=== PATIENT | female | born 1960 | race Caucasian/White ===

== ENCOUNTER 2017-05-04 21:07 | Inpatient (IN) | payer MEDICAID, OTHER ==
[~2017-05-04] VITALS: Ht 167.6 cm; Wt 81.6 kg
[~2017-05-04 21:07] MED LIST: AMLO10TA80; ENOX100D4; GABA-529; HYDR-2510; INSU100I19; INSU100I3; LEVE10006; METF500T7; OXYC1TAB; PRAV40TA58; WARF5TAB73
[2017-05-05] MEDS ORDERED: MORPHINE SULFATE 4 MG/ML CPJ (NOT FOR IM USE) IV STA (00:16)
[2017-05-05] MEDS ORDERED: ONDANSETRON HCL 4MG/2ML VIAL IV STA (00:16)
[2017-05-05] MEDS ORDERED: SODIUM CHLORIDE 0.9% 1000ML BAG (SEPSIS BOLUS) IV ONE (00:30)
[2017-05-05] MEDS ORDERED: VANCOMYCIN 1 G PREMIX 200 ML IV ONE (00:30)
[2017-05-05] MEDS ORDERED: PIPERACILLIN/TAZ 3.375G PREMIX 50 ML IV ONE (00:30)
[2017-05-05 01:06] LABS: BASOPHILS % 0.4 % (0.0-2.0); EOSINOPHILS % 0.5 % (0.0-5.0); HEMATOCRIT. 32.2 % (36.0-48.0); HEMOGLOBIN. 10.8 g/dL (12.0-16.0); LYMPHOCYTES % 14.1 % (20.0-50.0); MEAN CORPUSCULAR HEMOGLOBIN 27.1 pg (28.0-32.0); MEAN CORPUSCULAR VOLUME 80.7 fL (81.0-99.0); MEAN PLATELET VOLUME 8.1 fl (7.4-10.4); PLATELET 243 x1000/uL (130-400); RED BLOOD CELL COUNT 3.99 mill/uL (4.2-5.4); RED CELL DISTRIBUTION WIDTH 14.5 % (11.6-14.6)
[2017-05-05 01:08] LABS: CHLORIDE 102 mEq/L (98-107)
[2017-05-05 01:11] LABS: INR 1.1; PROTHROMBIN TIME 11.1 sec
[2017-05-05 01:17] LABS: CARBON DIOXIDE 25 mEq/L (21-32)
[2017-05-05] MEDS ORDERED: LIDOCAINE HCL 1% 20ML VIAL (Pyxis) INJ INFIL NR (03:15)
[2017-05-05] MEDS ORDERED: SULFAMETHOXAZOLE/TRIMETHOPRIM 800/160MG TABLET PO NR (03:15)
[2017-05-05] MEDS ORDERED: CEFTRIAXONE SODIUM 1 G/VIAL IM NR (03:15)
[2017-05-05] MEDS ORDERED: ONDANSETRON 4MG ODT PO PRN (04:30)
[2017-05-05] MEDS ORDERED: HYDROCODONE/ACETAMINOPHEN 10/325MG TABLET PO ONE (04:30)
[2017-05-05] MEDS ORDERED: SKIN ADHESIVE 0.7 GM EA TOP ONE (08:00)
[2017-05-05] MEDS ORDERED: BUPIVACAINE HCL/PF 0.5% (5MG/ML) 10ML ONE (08:01)
[2017-05-05] MEDS ORDERED: BACITRACIN 50,000 UNITS/VIAL ONE (08:17)
[2017-05-05] MEDS ORDERED: NORMAL SALINE 0.9% 10 ML SYR ONE (08:17)
[2017-05-05] MEDS ORDERED: LEVOFLOXACIN 500MG PREMIX 100 ML IV ONE (08:33)
[2017-05-05] MEDS ORDERED: MEPERIDINE HCL/PF 25MG/ML CPJ IV PRN (08:45)
[2017-05-05] MEDS ORDERED: LABETALOL HCL 20MG/4ML CARPUJECT IV PRN (08:45)
[2017-05-05] MEDS ORDERED: ONDANSETRON HCL 4MG/2ML VIAL IV PRN ×2 (08:45→14:30)
[2017-05-05] MEDS: HYDROMORPHONE HCL/PF 2MG/ML CPJ IV PRN ×5 (10:33→12:11)
[2017-05-05 11:15] VITALS: BP 116/86
[2017-05-05 11:22] VITALS: BP 116/86
[2017-05-05] MEDS ORDERED: KEPP500 PO (14:19)
[2017-05-05] MEDS ORDERED: ASCO500C6 PO (14:19)
[2017-05-05] MEDS ORDERED: DEXTROSE 50% WATER 50ML SYRINGE IV PRN (14:30)
[2017-05-05 16:00] VITALS: BP 117/76
[2017-05-05] MEDS ORDERED: CLINDAMYCIN 600 MG in DEXTROSE 5% WATER 50 ML IV SCH (16:00)
[2017-05-05] MEDS: BLOOD SUGAR DIAGNOSTIC STRIP TEST SCH ×2 (17:35→21:08)
[2017-05-05] MEDS: INSULIN LISPRO 100 UNITS/ML SUBCUT SCH ×2 (18:34→21:08)
[2017-05-05] MEDS: LEVETIRACETAM 500MG TABLET PO SCH (18:34)
[2017-05-05 20:00] VITALS: BP 112/71
[2017-05-05] MEDS: MORPHINE SULFATE 4 MG/ML CPJ (NOT FOR IM USE) IV PRN (21:07)
[2017-05-05] MEDS: CLINDAMYCIN 600 MG in DEXTROSE 5% WATER 50 ML IV SCH (23:20)
[2017-05-06] VITALS: BP 131/81
[2017-05-06 04:00] VITALS: BP 141/75
[2017-05-06] MEDS: HYDROCODONE/ACETAMINOPHEN 10/325MG TABLET PO PRN ×3 (04:06→20:06)
[2017-05-06] MEDS: CLINDAMYCIN 600 MG in DEXTROSE 5% WATER 50 ML IV SCH ×2 (05:08→13:07)
[2017-05-06] MEDS: BLOOD SUGAR DIAGNOSTIC STRIP TEST SCH ×4 (07:20→20:58)
[2017-05-06 07:46] LABS: BASOPHILS % 0.1 % (0.0-2.0); EOSINOPHILS % 0.8 % (0.0-5.0); HEMOGLOBIN. 9.6 g/dL (12.0-16.0); MEAN CORPUSCULAR HEMOGLOBIN 26.5 pg (28.0-32.0); MEAN CORPUSCULAR VOLUME 79.8 fL (81.0-99.0); MEAN PLATELET VOLUME 8.4 fl (7.4-10.4); MONOCYTES % 6.9 % (2.0-8.0); NEUTROPHILS % 65.2 % (40.0-76.0); PLATELET 230 x1000/uL (130-400); RED BLOOD CELL COUNT 3.63 mill/uL (4.2-5.4); RED CELL DISTRIBUTION WIDTH 14.4 % (11.6-14.6)
[2017-05-06 08:00] VITALS: BP 144/73
[2017-05-06 08:05] LABS: CARBON DIOXIDE 26 mEq/L (21-32); CHLORIDE 105 mEq/L (98-107)
[2017-05-06] MEDS: INSULIN LISPRO 100 UNITS/ML SUBCUT SCH ×6 (08:35→20:57)
[2017-05-06] MEDS: LEVETIRACETAM 500MG TABLET PO SCH ×2 (08:39→17:44)
[2017-05-06] MEDS: MORPHINE SULFATE 4 MG/ML CPJ (NOT FOR IM USE) IV PRN ×2 (11:51→20:54)
[2017-05-06 12:00] VITALS: BP 129/72
[2017-05-06 16:00] VITALS: BP 111/68
[2017-05-06 20:00] VITALS: BP 119/77
[2017-05-06] MEDS ORDERED: INSULIN DETEMIR UD 100 UNITS/ML SYR SUBCUT SCH (22:00)
[2017-05-07] VITALS: BP 120/64
[2017-05-07 04:00] VITALS: BP 122/58
[2017-05-07] MEDS: BLOOD SUGAR DIAGNOSTIC STRIP TEST SCH (06:26)
[2017-05-07 08:00] VITALS: BP 151/71
[2017-05-07] MEDS: INSULIN LISPRO 100 UNITS/ML SUBCUT SCH ×2 (08:25→08:26)
[2017-05-07] MEDS: LEVETIRACETAM 500MG TABLET PO SCH (08:27)
[2017-05-07 09:50] VITALS: BP 151/71
[2017-05-07] MEDS: HYDROCODONE/ACETAMINOPHEN 10/325MG TABLET PO PRN (09:50)
== END 2017-05-07 10:55 | disposition left against medical advice (07) | DRG 816 ==
LOC: ER 21:07 → ENRESERV 05-05 07:02 → ER 05-05 08:02 → 6EST 05-05 11:15
PROVIDERS: ADMIT Internal Medicine; ATTEND Internal Medicine
PROC: 0X973ZZ Drainage of Left Upper Extremity, Percutaneous Approach (ICD-10-PCS; principal; 2017-05-05 07:50)
DX: T40.1X1A Poisoning by heroin, accidental (unintentional), initial encounter (principal); M72.6 Necrotizing fasciitis; L03.114 Cellulitis of left upper limb; L02.414 Cutaneous abscess of left upper limb; F11.10 Opioid abuse, uncomplicated; G40.909 Epilepsy, unspecified, not intractable, without status epilepticus; F17.210 Nicotine dependence, cigarettes, uncomplicated; Z53.21 Procedure and treatment not carried out due to patient leaving prior to being seen by health care provider; E11.628 Type 2 diabetes mellitus with other skin complications; Z86.718 Personal history of other venous thrombosis and embolism; Z90.49 Acquired absence of other specified parts of digestive tract; Y92.89 Other specified places as the place of occurrence of the external cause
CPT/HCPCS: 36415; 71010; 76881; 80053; 82962; 83605; 85025; 85610; 87040; 87070; 87075; 87205; 93005; 93970; 96365; 96375; 99285; A4216; J0696; J1170; J1815; J1956; J2270; J2405; J2543; J3490; J7030; J7040; J7060; Q0162

== ENCOUNTER 2017-11-28 15:15 | Emergency (ER) | payer MEDICAID ==
[~2017-11-28] VITALS: Ht 167.6 cm; Wt 82.0 kg
[~2017-11-28 15:15] MED LIST changes: -AMLO10TA80; +ASCO500C6 PO; -ENOX100D4; -GABA-529; -HYDR-2510; +KEPP500 PO; -LEVE10006; -OXYC1TAB; -WARF5TAB73
[2017-11-28] MEDS ORDERED: SODIUM CHLORIDE 0.9% 1,000 ML IV ONE (23:11)
[2017-11-28] MEDS ORDERED: ONDANSETRON HCL 4MG/2ML VIAL IV SCH (23:11)
[2017-11-28] MEDS ORDERED: KETOROLAC 30MG/ML VIAL IV SCH (23:11)
[2017-11-28 23:13] LABS: BASOPHILS % 0.5 % (0.0-2.0); EOSINOPHILS % 2.7 % (0.0-5.0); HEMOGLOBIN. 11.7 g/dL (12.0-16.0); LYMPHOCYTES % 34.5 % (20.0-50.0); MEAN CORPUSCULAR HEMOGLOBIN 26.4 pg (28.0-32.0); MEAN CORPUSCULAR VOLUME 80.6 fL (81.0-99.0); MEAN PLATELET VOLUME 7.9 fl (7.4-10.4); MONOCYTES % 7.7 % (2.0-8.0); NEUTROPHILS % 54.6 % (40.0-76.0); PLATELET 219 x1000/uL (130-400); RED BLOOD CELL COUNT 4.46 mill/uL (4.2-5.4)
[2017-11-28] MEDS ORDERED: VANCOMYCIN 1 G PREMIX 200 ML IV SCH (23:15)
[2017-11-28] MEDS ORDERED: PIPERACILLIN/TAZ 3.375G PREMIX 50 ML IV SCH (23:15)
[2017-11-28 23:18] LABS: CHLORIDE 98 mEq/L (98-107)
[2017-11-28 23:24] LABS: CARBON DIOXIDE 29 mEq/L (21-32)
[2017-11-28 23:40] LABS: PROTHROMBIN TIME 10.7 sec (9.4-11.6)
[2017-11-29] MEDS ORDERED: KETOROLAC 30MG/ML VIAL IM SCH (00:15)
[2017-11-29] MEDS ORDERED: ONDANSETRON 4MG ODT PO SCH (00:15)
[2017-11-29 00:22] LABS: CLARITY URINE CLEAR (CLEAR); COLOR URINE YELLOW (YELLOW); KETONES URINE NEGATIVE (NEGATIVE); LEUKOCYTE ESTERASE URINE NEGATIVE (NEGATIVE); NITRITE URINE NEGATIVE (NEGATIVE); OCCULT BLOOD URINE NEGATIVE (NEGATIVE); PROTEIN URINE NEGATIVE (NEGATIVE); SPECIFIC GRAVITY URINE 1.044 (1.005-1.030); UROBILINOGEN URINE 0.2 E.U./dL (0.2-1.0)
[2017-11-29] MEDS ORDERED: ENOXAPARIN 80MG/0.8ML SYR SUBCUT ONE (02:47)
[2017-11-29] MEDS ORDERED: LIDOCAINE HCL 1% 20ML VIAL (Pyxis) INJ MC ONE (02:47)
[2017-11-29] MEDS ORDERED: BACITRACIN ZINC OINT UDPKT TOP ONE (02:47)
[2017-11-29] MEDS ORDERED: TETANUS, DIPHTHERIA, PERTUSSIS VAC/PF 0.5ML (>7YR OLD) IM ONE (02:47)
[2017-11-29] MEDS ORDERED: HYDROCODONE/ACETAMINOPHEN 10/325MG TABLET PO ONE (02:48)
[2017-11-29] MEDS ORDERED: CEPHALEXIN 500MG CAPSULE PO SCH (04:22)
[2017-11-29] MEDS ORDERED: SULFAMETHOXAZOLE/TRIMETHOPRIM 800/160MG TABLET PO SCH (04:22)
[2017-11-29 05:45] VITALS: BP 115/56
[2017-11-29] MEDS ORDERED: LEVETIRACETAM 500MG TABLET PO SCH (09:00)
[2017-11-29] MEDS ORDERED: INSULIN DETEMIR UD 100 UNITS/ML SYR SUBCUT SCH (22:00)
== END 2017-11-29 07:15 | disposition left against medical advice (07) ==
LOC: ER 15:53 → CANBEDREQ 11-29 18:22
DX: E11.65 Type 2 diabetes mellitus with hyperglycemia (principal); E86.0 Dehydration; L02.414 Cutaneous abscess of left upper limb; F11.20 Opioid dependence, uncomplicated; Z79.4 Long term (current) use of insulin
CPT/HCPCS: 10060; 36415; 71045; 76881; 80053; 81001; 82962; 83605; 85025; 85610; 87040; 87077; 87086; 87186; 90471; 90715; 93005; 93971; 96372; 99285; C1893; J1650; J1885; J3490; J7030; Q0162; X7700; Z7610

== ENCOUNTER 2018-01-01 18:42 | Emergency (ER) | payer MEDICAID ==
[~2018-01-01] VITALS: Ht 167.6 cm; Wt 97.4 kg
[2018-01-01] MEDS ORDERED: LIDOCAINE HCL 1% 20ML VIAL (Pyxis) INJ INFIL ONE (22:15)
[2018-01-01] MEDS ORDERED: CEFTRIAXONE SODIUM 1 G/VIAL IM ONE (22:15)
[2018-01-01] MEDS ORDERED: DOXYCYCLINE HYCLATE 100MG CAPSULE PO ONE (22:15)
[2018-01-01] MEDS ORDERED: TRAMADOL 50MG TABLET PO ONE (22:30)
[2018-01-01] MEDS ORDERED: BACITRACIN ZINC OINT UDPKT TOP ONE (22:30)
[2018-01-01] MEDS ORDERED: LIDOCAINE HCL 1% 20ML VIAL (Pyxis) INJ MC ONE (22:30)
[2018-01-01] MEDS ORDERED: ONDANSETRON 4MG ODT PO ONE (22:30)
[2018-01-01] MEDS ORDERED: KETOROLAC 30MG/ML VIAL IM ONE (22:30)
[2018-01-01 23:12] LABS: CLARITY URINE CLEAR (CLEAR); COLOR URINE YELLOW (YELLOW); KETONES URINE NEGATIVE (NEGATIVE); LEUKOCYTE ESTERASE URINE NEGATIVE (NEGATIVE); NITRITE URINE NEGATIVE (NEGATIVE); OCCULT BLOOD URINE NEGATIVE (NEGATIVE); PH URINE 6.5 (4.5-8.0); PROTEIN URINE NEGATIVE (NEGATIVE); SPECIFIC GRAVITY URINE 1.039 (1.005-1.030); UROBILINOGEN URINE 0.2 E.U./dL (0.2-1.0)
[2018-01-02 00:08] LABS: CHLORIDE 90 mEq/L (98-107)
[2018-01-02 00:24] LABS: BASOPHILS % 0.3 % (0.0-2.0); EOSINOPHILS % 0.7 % (0.0-5.0); HEMOGLOBIN. 10.8 g/dL (12.0-16.0); LYMPHOCYTES % 19.9 % (20.0-50.0); MEAN CORPUSCULAR HEMOGLOBIN 26.1 pg (28.0-32.0); MEAN PLATELET VOLUME 7.9 fl (7.4-10.4); MONOCYTES % 6.8 % (2.0-8.0); NEUTROPHILS % 72.3 % (40.0-76.0); PLATELET 270 x1000/uL (130-400); RED BLOOD CELL COUNT 4.13 mill/uL (4.2-5.4); RED CELL DISTRIBUTION WIDTH 14.6 % (11.6-14.6)
[2018-01-02 00:25] LABS: INR 1.1; PROTHROMBIN TIME 11.3 sec (9.4-11.6)
[2018-01-02 00:30] VITALS: BP 139/69
[2018-01-02] MEDS ORDERED: INSULIN REGULAR (HUMULIN R) 300UNITS/3ML SUBCUT NR (00:45)
== END 2018-01-02 01:35 | disposition home or self-care (01) ==
LOC: ER 20:28
DX: L02.414 Cutaneous abscess of left upper limb (principal); E11.9 Type 2 diabetes mellitus without complications; F11.10 Opioid abuse, uncomplicated; Z79.4 Long term (current) use of insulin
CPT/HCPCS: 10060; 36415; 71045; 80053; 81001; 83605; 85025; 85610; 87040; 87086; 93005; 96372; 99285; J0696; J1815; J1885; J3490; Q0162; Z7610

== ENCOUNTER 2018-05-13 06:47 | Inpatient (IN) | payer MEDICAID ==
[~2018-05-13] VITALS: Ht 167.6 cm; Wt 97.6 kg
[2018-05-13] MEDS ORDERED: KETOROLAC 30MG/ML VIAL IV STA (08:29)
[2018-05-13] MEDS ORDERED: CLINDAMYCIN 600 MG in DEXTROSE 5% WATER 50 ML IV ONE (08:30)
[2018-05-13 09:22] LABS: BASOPHILS % 0.2 % (0.0-2.0); EOSINOPHILS % 0.1 % (0.0-5.0); HEMATOCRIT. 33.5 % (36.0-48.0); HEMOGLOBIN. 11.1 g/dL (12.0-16.0); LYMPHOCYTES % 13.3 % (20.0-50.0); MEAN CORPUSCULAR HEMOGLOBIN 26.3 pg (28.0-32.0); MEAN CORPUSCULAR VOLUME 79.2 fL (81.0-99.0); MEAN PLATELET VOLUME 7.9 fl (7.4-10.4); MONOCYTES % 7.5 % (2.0-8.0); NEUTROPHILS % 78.9 % (40.0-76.0); PLATELET 174 x1000/uL (130-400); RED BLOOD CELL COUNT 4.23 mill/uL (4.2-5.4); RED CELL DISTRIBUTION WIDTH 15.3 % (11.6-14.6)
[2018-05-13 09:31] LABS: INR 1.1; PROTHROMBIN TIME 11.5 sec (9.4-11.6)
[2018-05-13 09:45] LABS: CHLORIDE 91 mEq/L (98-107)
[2018-05-13] MEDS ORDERED: SODIUM CHLORIDE 0.9% 1,000 ML IV ONE (09:54)
[2018-05-13] MEDS ORDERED: INSULIN REGULAR (HUMULIN R) 300UNITS/3ML IV ONE (10:00)
[2018-05-13] MEDS ORDERED: CLINDAMYCIN 600MG PREMIX 50 ML IV SCH (10:00)
[2018-05-13] MEDS ORDERED: IPRATROPIUM/ALBUTEROL 0.5-3(2.5)MG/3ML NEB INH PRN (10:15)
[2018-05-13] MEDS ORDERED: DOCUSATE SODIUM 100MG CAPSULE PO PRN (10:15)
[2018-05-13] MEDS ORDERED: ONDANSETRON HCL 4MG/2ML VIAL IV PRN (10:15)
[2018-05-13] MEDS ORDERED: MAGNESIUM/ALUMINUM HYDROXIDE/SIMETHICONE 30ML UDC PO PRN (10:15)
[2018-05-13 11:50] LABS: CLARITY URINE CLEAR (CLEAR); COLOR URINE YELLOW (YELLOW); KETONES URINE NEGATIVE (NEGATIVE); LEUKOCYTE ESTERASE URINE NEGATIVE (NEGATIVE); NITRITE URINE NEGATIVE (NEGATIVE); OCCULT BLOOD URINE NEGATIVE (NEGATIVE); PH URINE 5.5 (4.5-8.0); PROTEIN URINE TRACE (NEGATIVE); SPECIFIC GRAVITY URINE 1.027 (1.005-1.030)
[2018-05-13 12:00] VITALS: BP 146/82
[2018-05-13] MEDS ORDERED: DEXTROSE 50% WATER 50ML SYRINGE IV PRN (12:15)
[2018-05-13] MEDS: BLOOD SUGAR DIAGNOSTIC STRIP TEST SCH ×3 (12:20→21:27)
[2018-05-13 12:26] LABS: *AMPHETAMINES SCREEN URINE NEGATIVE (NEGATIVE); *BARBITURATES SCREEN URINE NEGATIVE (NEGATIVE); *BENZODIAZEPINES SCREEN URINE NEGATIVE (NEGATIVE); *COCAINE SCREEN URINE NEGATIVE (NEGATIVE); OPIATES URINE SCREEN PRESUMTIVE POSITIVE (NEGATIVE)
[2018-05-13 12:27] LABS: CANNABINOID URINE SCREEN NEGATIVE (NEGATIVE); PHENCYCLIDINE URINE SCREEN NEGATIVE (NEGATIVE)
[2018-05-13 12:31] LABS: METHADONE URINE SCREEN PRESUMTIVE POSITIVE (NEGATIVE)
[2018-05-13] MEDS: SODIUM CHLORIDE 0.9% 1,000 ML IV SCH (13:10)
[2018-05-13] MEDS: INSULIN LISPRO 100 UNITS/ML SUBCUT SCH ×3 (13:11→21:39)
[2018-05-13] MEDS: PIPERACILLIN/TAZ 3.375G PREMIX 50 ML IV SCH ×2 (14:31→21:28)
[2018-05-13] MEDS: ENOXAPARIN 40MG/0.4ML SYR SUBCUT SCH (14:34)
[2018-05-13] MEDS: ACETAMINOPHEN 325MG TABLET PO PRN (14:37)
[2018-05-13] MEDS ORDERED: VANCOMYCIN 750 MG PREMIX 150 ML IV SCH (16:00)
[2018-05-13] MEDS ORDERED: VANCOMYCIN 1500MG in DEXTROSE 5% WATER 250ML IV SCH (16:30)
[2018-05-13 17:00] VITALS: BP 149/80
[2018-05-13] MEDS: HYDROCODONE/ACETAMINOPHEN 5/325MG TABLET PO PRN (19:58)
[2018-05-13 20:00] VITALS: BP 137/73
[2018-05-14] VITALS: BP 159/78
[2018-05-14] MEDS: HYDROCODONE/ACETAMINOPHEN 5/325MG TABLET PO PRN ×5 (00:20→19:59)
[2018-05-14 04:00] VITALS: BP 181/82
[2018-05-14] MEDS: SODIUM CHLORIDE 0.9% 1,000 ML IV SCH ×2 (05:09→23:37)
[2018-05-14] MEDS: PIPERACILLIN/TAZ 3.375G PREMIX 50 ML IV SCH ×3 (05:10→23:35)
[2018-05-14] MEDS: CLONIDINE 0.1MG TABLET PO PRN ×3 (05:17→19:59)
[2018-05-14] MEDS: BLOOD SUGAR DIAGNOSTIC STRIP TEST SCH ×4 (06:29→21:00)
[2018-05-14] MEDS: VANCOMYCIN 1250MG in DEXTROSE 5% WATER 250ML IV SCH ×2 (06:57→17:43)
[2018-05-14 08:00] VITALS: BP 153/68
[2018-05-14] MEDS: INSULIN LISPRO 100 UNITS/ML SUBCUT SCH ×4 (08:14→23:33)
[2018-05-14 10:12] LABS: BASOPHILS % 0.3 % (0.0-2.0); EOSINOPHILS % 0.3 % (0.0-5.0); HEMOGLOBIN. 11.1 g/dL (12.0-16.0); LYMPHOCYTES % 16.6 % (20.0-50.0); MEAN CORPUSCULAR HEMOGLOBIN 26.6 pg (28.0-32.0); MEAN CORPUSCULAR VOLUME 79.3 fL (81.0-99.0); MEAN PLATELET VOLUME 8.1 fl (7.4-10.4); NEUTROPHILS % 75.8 % (40.0-76.0); PLATELET 167 x1000/uL (130-400); RED BLOOD CELL COUNT 4.16 mill/uL (4.2-5.4); RED CELL DISTRIBUTION WIDTH 15.7 % (11.6-14.6)
[2018-05-14 12:00] VITALS: BP 163/84
[2018-05-14] MEDS: ENOXAPARIN 40MG/0.4ML SYR SUBCUT SCH (13:27)
[2018-05-14] MEDS ORDERED: TETANUS AND DIPHTHERIA TOX/PF 0.5ML SYR (ADULT) IM ONE (15:30)
[2018-05-14] MEDS ORDERED: TETANUS, DIPHTHERIA, PERTUSSIS VAC/PF 0.5ML (>7YR OLD) IM ONE (15:45)
[2018-05-14 16:00] VITALS: BP 152/91
[2018-05-14 20:00] VITALS: BP 134/78
[2018-05-15] VITALS: BP 157/77
[2018-05-15] MEDS: MORPHINE SULFATE 4 MG/ML CPJ (NOT FOR IM USE) IV PRN ×5 (00:28→23:22)
[2018-05-15 04:13] VITALS: BP 151/67
[2018-05-15] MEDS: HYDROCODONE/ACETAMINOPHEN 5/325MG TABLET PO PRN ×2 (04:22→10:20)
[2018-05-15] MEDS: PIPERACILLIN/TAZ 3.375G PREMIX 50 ML IV SCH ×3 (05:30→23:21)
[2018-05-15] MEDS: VANCOMYCIN 1250MG in DEXTROSE 5% WATER 250ML IV SCH (06:00)
[2018-05-15] MEDS: BLOOD SUGAR DIAGNOSTIC STRIP TEST SCH ×4 (06:31→21:00)
[2018-05-15 08:00] VITALS: BP 146/75
[2018-05-15] MEDS: INSULIN LISPRO 100 UNITS/ML SUBCUT SCH ×4 (08:09→23:46)
[2018-05-15] MEDS ORDERED: LIDOCAINE HCL/PF 1% 10 MG/ML 5ML VIAL ONE (11:28)
[2018-05-15 12:00] VITALS: BP 187/116
[2018-05-15] MEDS: SODIUM CHLORIDE 0.9% 1,000 ML IV SCH ×2 (12:27→23:30)
[2018-05-15] MEDS: VANCOMYCIN 1 G PREMIX 200 ML IV SCH ×2 (12:27→23:31)
[2018-05-15] MEDS: CLONIDINE 0.1MG TABLET PO PRN (12:48)
[2018-05-15] MEDS: ENOXAPARIN 40MG/0.4ML SYR SUBCUT SCH (15:02)
[2018-05-15 16:00] VITALS: BP 134/44
[2018-05-15] MEDS: LEVETIRACETAM 500MG TABLET PO SCH (16:16)
[2018-05-15 20:00] VITALS: BP 124/80
[2018-05-16] VITALS: BP 115/71
[2018-05-16] MEDS: HYDROCODONE/ACETAMINOPHEN 5/325MG TABLET PO PRN (02:11)
[2018-05-16 04:00] VITALS: BP 124/76
[2018-05-16] MEDS: MORPHINE SULFATE 4 MG/ML CPJ (NOT FOR IM USE) IV PRN ×4 (04:00→16:28)
[2018-05-16] MEDS: BLOOD SUGAR DIAGNOSTIC STRIP TEST SCH ×4 (06:49→21:00)
[2018-05-16] MEDS: PIPERACILLIN/TAZ 3.375G PREMIX 50 ML IV SCH ×2 (06:49→13:29)
[2018-05-16] MEDS: INSULIN LISPRO 100 UNITS/ML SUBCUT SCH ×3 (07:02→18:06)
[2018-05-16 08:00] VITALS: BP 104/66
[2018-05-16] MEDS: VANCOMYCIN 1 G PREMIX 200 ML IV SCH ×2 (08:12→21:00)
[2018-05-16] MEDS: LEVETIRACETAM 500MG TABLET PO SCH ×2 (08:12→16:28)
[2018-05-16 12:00] VITALS: BP 149/91
[2018-05-16] MEDS: ACETAMINOPHEN 325MG TABLET PO PRN (12:26)
[2018-05-16] MEDS: ENOXAPARIN 40MG/0.4ML SYR SUBCUT SCH (13:29)
[2018-05-16 13:33] LABS: BASOPHILS % 0.2 % (0.0-2.0); HEMATOCRIT. 23.3 % (36.0-48.0); HEMOGLOBIN. 7.9 g/dL (12.0-16.0); LYMPHOCYTES % 7.2 % (20.0-50.0); MEAN CORPUSCULAR HEMOGLOBIN 26.9 pg (28.0-32.0); MEAN CORPUSCULAR VOLUME 79.6 fL (81.0-99.0); MEAN PLATELET VOLUME 7.7 fl (7.4-10.4); MONOCYTES % 7.3 % (2.0-8.0); NEUTROPHILS % 85.3 % (40.0-76.0); PLATELET 139 x1000/uL (130-400); RED BLOOD CELL COUNT 2.93 mill/uL (4.2-5.4); RED CELL DISTRIBUTION WIDTH 15.5 % (11.6-14.6)
[2018-05-16] MEDS ORDERED: INSULIN LISPRO 100 UNITS/ML SUBCUT NR (13:41)
[2018-05-16] MEDS ORDERED: MORPHINE SULFATE 2 MG/ML CPJ (NOT FOR IM USE) IV PRN (13:45)
[2018-05-16 14:00] LABS: CHLORIDE 97 mEq/L (98-107)
[2018-05-16] MEDS: KETOROLAC 15MG/ML VIAL IV SCH (14:04)
[2018-05-16] MEDS: SODIUM CHLORIDE 0.9% 1,000 ML IV SCH (14:05)
[2018-05-16 16:00] VITALS: BP 145/96
[2018-05-16] MEDS: INSULIN GLARGINE UD 100 UNITS/ML SYR SUBCUT SCH (16:35)
[2018-05-16 20:00] VITALS: BP 128/84
[2018-05-17] VITALS (41 sets, daily range): BP systolic 65–217; BP diastolic 48–127
[2018-05-17] MEDS: MORPHINE SULFATE 4 MG/ML CPJ (NOT FOR IM USE) IV PRN ×2 (00:01→08:37)
[2018-05-17] MEDS: SODIUM CHLORIDE 0.9% 1,000 ML IV SCH ×2 (00:24→21:35)
[2018-05-17] MEDS: KETOROLAC 15MG/ML VIAL IV SCH ×3 (05:53→08:00)
[2018-05-17] MEDS: INSULIN LISPRO 100 UNITS/ML SUBCUT SCH ×5 (05:55→21:45)
[2018-05-17] MEDS: PIPERACILLIN/TAZ 3.375G PREMIX 50 ML IV SCH ×4 (05:57→23:05)
[2018-05-17] MEDS: BLOOD SUGAR DIAGNOSTIC STRIP TEST SCH ×4 (05:57→21:35)
[2018-05-17 08:44] LABS: BASOPHILS % 0.7 % (0.0-2.0); EOSINOPHILS % 0.2 % (0.0-5.0); HEMATOCRIT. 30.8 % (36.0-48.0); HEMOGLOBIN. 10.4 g/dL (12.0-16.0); LYMPHOCYTES % 13.5 % (20.0-50.0); MEAN CORPUSCULAR HEMOGLOBIN 26.3 pg (28.0-32.0); MEAN CORPUSCULAR VOLUME 77.9 fL (81.0-99.0); MEAN PLATELET VOLUME 7.3 fl (7.4-10.4); MONOCYTES % 6.9 % (2.0-8.0); NEUTROPHILS % 78.7 % (40.0-76.0); PLATELET 212 x1000/uL (130-400); RED BLOOD CELL COUNT 3.96 mill/uL (4.2-5.4); RED CELL DISTRIBUTION WIDTH 15.3 % (11.6-14.6)
[2018-05-17] MEDS: LEVETIRACETAM 500MG TABLET PO SCH ×2 (09:00→19:00)
[2018-05-17 09:45] LABS: CHLORIDE 99 mEq/L (98-107)
[2018-05-17] MEDS ORDERED: DEXT 5%/0.45% NACL 1000ML 1,000 ML IV SCH (09:45)
[2018-05-17 09:51] LABS: PHOSPHORUS 2.2 mg/dL (2.5-4.9)
[2018-05-17 09:53] LABS: VANCOMYCIN TROUGH 4.3 ug/mL (5.0-10.0)
[2018-05-17] MEDS: INSULIN GLARGINE UD 100 UNITS/ML SYR SUBCUT SCH ×2 (09:59→21:46)
[2018-05-17] MEDS: VANCOMYCIN 1 G PREMIX 200 ML IV SCH ×2 (10:02→22:13)
[2018-05-17 10:26] LABS: HEPATITIS B SURFACE ANTIGEN NEGATIVE
[2018-05-17 10:54] LABS: HEPATITIS B CORE AB IGM NEGATIVE
[2018-05-17 10:55] LABS: HEPATITIS A AB IGM NEGATIVE (NEGATIVE)
[2018-05-17] MEDS ORDERED: VANCOMYCIN HCL 500 MG/VIAL ONE (11:44)
[2018-05-17] MEDS ORDERED: BACITRACIN ZINC 15GM TUBE TOP ONE (11:44)
[2018-05-17] MEDS ORDERED: BUPIVACAINE HCL/PF 0.5% (5MG/ML) 10ML ONE (11:44)
[2018-05-17] MEDS ORDERED: NORMAL SALINE 0.9% 10 ML SYR ONE ×2 (11:45→13:47)
[2018-05-17] MEDS ORDERED: BACITRACIN 50,000 UNITS/VIAL ONE (11:45)
[2018-05-17] MEDS ORDERED: FENTANYL CITRATE/PF 50MCG/ML 2ML VIAL ONE ×2 (12:37→12:51)
[2018-05-17] MEDS ORDERED: ONDANSETRON HCL 4MG/2ML VIAL ONE (12:38)
[2018-05-17] MEDS ORDERED: GLYCOPYRROLATE 0.2 MG/ML 2ML VIAL ONE (12:38)
[2018-05-17] MEDS ORDERED: LIDOCAINE HCL/PF 1% 10 MG/ML 5ML VIAL ONE (12:38)
[2018-05-17] MEDS ORDERED: METOCLOPRAMIDE HCL 10MG/2ML VIAL ONE (12:38)
[2018-05-17] MEDS ORDERED: MIDAZOLAM HCL 2 MG/2 ML VIAL ONE (12:38)
[2018-05-17] MEDS ORDERED: PROPOFOL 200MG/20ML VIAL IV ONE (12:38)
[2018-05-17] MEDS ORDERED: HYDROMORPHONE HCL/PF 2MG/ML (OR) ONE (12:59)
[2018-05-17] MEDS ORDERED: KCL 20MEQ/100ML PREMIX 100 ML IV SCH (13:00)
[2018-05-17] MEDS ORDERED: THROMBIN (BOVINE) 5000 UNITS/VIAL TOP ONE (13:24)
[2018-05-17] MEDS ORDERED: HEPARIN SODIUM 1,000 UNIT/1ML VIAL IV ONE (13:25)
[2018-05-17] MEDS ORDERED: GELATIN SPONGE,COMPRESSED SZ 100 ONE (13:25)
[2018-05-17] MEDS ORDERED: IOPAMIDOL 20 ML VIAL IT ONE (13:44)
[2018-05-17] MEDS ORDERED: IOHEXOL-300 100 ML BOTTLE ONE (13:47)
[2018-05-17] MEDS ORDERED: ROCURONIUM BROMIDE 10MG/ML VIAL 5ML IV ONE (13:50)
[2018-05-17] MEDS ORDERED: PHENYLEPHRINE HCL 10 MG/ML 1ML (IV VIAL) IV ONE (13:50)
[2018-05-17] MEDS: ENOXAPARIN 40MG/0.4ML SYR SUBCUT SCH (14:00)
[2018-05-17] MEDS ORDERED: SKIN ADHESIVE 0.7 GM EA TOP ONE (14:44)
[2018-05-17] MEDS ORDERED: CALCIUM CHLORIDE 1GM/10ML SYR IV ONE (14:49)
[2018-05-17] MEDS ORDERED: LABETALOL 5MG/ML SYR 20 MG/4 ML SYRINGE IV NR ×2 (15:45→16:00)
[2018-05-17 15:55] LABS: CHLORIDE 105 mEq/L (98-107)
[2018-05-17 16:20] LABS: BASOPHILS % 0.7 % (0.0-2.0); EOSINOPHILS % 0.3 % (0.0-5.0); HEMATOCRIT. 36.6 % (36.0-48.0); HEMOGLOBIN. 12.5 g/dL (12.0-16.0); LYMPHOCYTES % 14.1 % (20.0-50.0); MEAN CORPUSCULAR HEMOGLOBIN 27.4 pg (28.0-32.0); MEAN CORPUSCULAR VOLUME 80.5 fL (81.0-99.0); MEAN PLATELET VOLUME 7.3 fl (7.4-10.4); MONOCYTES % 7.3 % (2.0-8.0); NEUTROPHILS % 77.6 % (40.0-76.0); PLATELET 197 x1000/uL (130-400); RED BLOOD CELL COUNT 4.55 mill/uL (4.2-5.4); RED CELL DISTRIBUTION WIDTH 15.7 % (11.6-14.6)
[2018-05-17] MEDS ORDERED: NICARDIPINE 40MG/200ML PREMIX 200 ML IV PRN (16:30)
[2018-05-17 16:35] LABS: BG BASE EXCESS 0.4 mmol/L (-2.0-2.0); BG CARBOXYHEMOGLOBIN 0.6 % (0.5-1.5); BG DEOXYHEMOGLOBIN 1.8 % (0.0-5.0); BG FRACTION INSPIRED OXYGEN 50; BG HCO3 ACT 22.6 mmol/L (22.0-26.0); BG METHEMOGLOBIN 1.2 % (0.0-1.5); BG OXYGEN SATURATION 98.2 % (92.0-98.5); BG OXYHEMOGLOBIN 96.4 % (94.0-97.0); BG PCO2 29.5 mmHg (35.0-45.0); BG PH 7.502 (7.350-7.450); BG PO2 120.8 mmHg (75.0-100.0); BG SAMPLE SITE A-LINE; BG TIDAL VOLUME(mL) 600 mL; BG TOTAL HEMOGLOBIN 13.4 g/dL (12.0-18.0); BG VENT MODE VENT - A/C; BG VENT RATE 15 set
[2018-05-17] MEDS: PROPOFOL 10MG/ML 100ML 100 ML IV PRN ×3 (16:44→23:06)
[2018-05-17] MEDS ORDERED: PROPOFOL 10MG/ML 100ML 100 ML IV PRN (16:45)
[2018-05-17] MEDS ORDERED: PANTOPRAZOLE SODIUM 40 MG/VIAL IV NR (16:45)
[2018-05-17 18:53] LABS: INR 1.1; PROTHROMBIN TIME 11.9 sec (9.4-11.6)
[2018-05-17] MEDS: CLONIDINE 0.1MG TABLET PO PRN (19:00)
[2018-05-17] MEDS ORDERED: KCL 20MEQ/100ML PREMIX 100 ML IV NR (20:00)
[2018-05-18] VITALS (77 sets, daily range): BP systolic 65–174; BP diastolic 43–97
[2018-05-18] MEDS: PROPOFOL 10MG/ML 100ML 100 ML IV PRN ×2 (04:07→08:17)
[2018-05-18 05:10] LABS: BASOPHILS % 0.3 % (0.0-2.0); EOSINOPHILS % 1.2 % (0.0-5.0); HEMOGLOBIN. 10.5 g/dL (12.0-16.0); LYMPHOCYTES % 19.9 % (20.0-50.0); MEAN CORPUSCULAR HEMOGLOBIN 27.3 pg (28.0-32.0); MEAN CORPUSCULAR VOLUME 80.4 fL (81.0-99.0); MEAN PLATELET VOLUME 7.3 fl (7.4-10.4); MONOCYTES % 8.2 % (2.0-8.0); NEUTROPHILS % 70.4 % (40.0-76.0); PLATELET 193 x1000/uL (130-400); RED BLOOD CELL COUNT 3.85 mill/uL (4.2-5.4)
[2018-05-18 05:20] LABS: CHLORIDE 108 mEq/L (98-107)
[2018-05-18] MEDS: BLOOD SUGAR DIAGNOSTIC STRIP TEST SCH ×4 (05:41→20:49)
[2018-05-18] MEDS: PIPERACILLIN/TAZ 3.375G PREMIX 50 ML IV SCH ×3 (05:42→21:45)
[2018-05-18] MEDS: INSULIN LISPRO 100 UNITS/ML SUBCUT SCH ×4 (06:03→21:10)
[2018-05-18] MEDS: MORPHINE SULFATE 4 MG/ML CPJ (NOT FOR IM USE) IV PRN ×3 (08:18→20:26)
[2018-05-18] MEDS: LEVETIRACETAM 500MG TABLET PO SCH ×2 (08:19→16:29)
[2018-05-18] MEDS: PANTOPRAZOLE SODIUM 40 MG/VIAL IV SCH (08:19)
[2018-05-18 08:21] LABS: BG CARBOXYHEMOGLOBIN 0.5 % (0.5-1.5); BG DEOXYHEMOGLOBIN 1.4 % (0.0-5.0); BG FRACTION INSPIRED OXYGEN 40; BG HCO3 ACT 21.5 mmol/L (22.0-26.0); BG METHEMOGLOBIN 0.3 % (0.0-1.5); BG OXYGEN SATURATION 98.6 % (92.0-98.5); BG OXYHEMOGLOBIN 97.8 % (94.0-97.0); BG PH 7.445 (7.350-7.450); BG PO2 138.9 mmHg (75.0-100.0); BG SAMPLE SITE A-LINE; BG TIDAL VOLUME(mL) 550 mL; BG TOTAL HEMOGLOBIN 10.4 g/dL (12.0-18.0); BG VENT MODE VENT - A/C; BG VENT RATE 12 set
[2018-05-18] MEDS: SODIUM CHLORIDE 0.9% 1,000 ML IV SCH (08:25)
[2018-05-18 09:14] LABS: HIV SCREEN 4G Non Reactive (Non Reactive)
[2018-05-18] MEDS: INSULIN GLARGINE UD 100 UNITS/ML SYR SUBCUT SCH ×2 (10:02→21:11)
[2018-05-18] MEDS: VANCOMYCIN 1 G PREMIX 200 ML IV SCH ×2 (10:02→20:26)
[2018-05-18] MEDS ORDERED: LIDOCAINE HCL/PF 1% 2ML VIAL ONE (13:29)
[2018-05-18 13:44] LABS: BG BASE EXCESS -1.7 mmol/L (-2.0-2.0); BG CARBOXYHEMOGLOBIN 0.3 % (0.5-1.5); BG DEOXYHEMOGLOBIN 1.5 % (0.0-5.0); BG HCO3 ACT 21.4 mmol/L (22.0-26.0); BG METHEMOGLOBIN 0.3 % (0.0-1.5); BG OXYGEN SATURATION 98.5 % (92.0-98.5); BG OXYHEMOGLOBIN 97.9 % (94.0-97.0); BG PCO2 31.3 mmHg (35.0-45.0); BG PH 7.452 (7.350-7.450); BG SAMPLE SITE RIGHT RADIAL; BG TIDAL VOLUME(mL) 550 mL; BG TOTAL HEMOGLOBIN 12.4 g/dL (12.0-18.0); BG VENT MODE VENT - SIMV; BG VENT RATE 6 set
[2018-05-18] MEDS: CLONIDINE 0.1MG TABLET PO PRN ×2 (14:29→21:45)
[2018-05-18 15:41] LABS: BG BASE EXCESS -0.5 mmol/L (-2.0-2.0); BG CARBOXYHEMOGLOBIN 0.1 % (0.5-1.5); BG CPAP (cmH2O) 0 cm(H2O); BG DEOXYHEMOGLOBIN 1.4 % (0.0-5.0); BG HCO3 ACT 22.9 mmol/L (22.0-26.0); BG METHEMOGLOBIN 0.1 % (0.0-1.5); BG OXYGEN SATURATION 98.6 % (92.0-98.5); BG OXYHEMOGLOBIN 98.4 % (94.0-97.0); BG PCO2 33.6 mmHg (35.0-45.0); BG PH 7.452 (7.350-7.450); BG PO2 134.2 mmHg (75.0-100.0); BG SAMPLE SITE RIGHT RADIAL; BG TOTAL HEMOGLOBIN 11.3 g/dL (12.0-18.0); BG VENT MODE VENT - CPAP
[2018-05-19] VITALS (13 sets, daily range): BP systolic 99–160; BP diastolic 53–89
[2018-05-19] MEDS: MORPHINE SULFATE 4 MG/ML CPJ (NOT FOR IM USE) IV PRN ×5 (01:03→20:13)
[2018-05-19] MEDS: PIPERACILLIN/TAZ 3.375G PREMIX 50 ML IV SCH ×3 (05:11→21:58)
[2018-05-19] MEDS: SODIUM CHLORIDE 0.9% 1,000 ML IV SCH ×2 (05:11→23:16)
[2018-05-19 06:12] LABS: BASOPHILS % 0.3 % (0.0-2.0); EOSINOPHILS % 2.3 % (0.0-5.0); HEMATOCRIT. 27.4 % (36.0-48.0); HEMOGLOBIN. 9.4 g/dL (12.0-16.0); LYMPHOCYTES % 22.5 % (20.0-50.0); MEAN CORPUSCULAR HEMOGLOBIN 27.9 pg (28.0-32.0); MEAN CORPUSCULAR VOLUME 81.2 fL (81.0-99.0); MEAN PLATELET VOLUME 7.3 fl (7.4-10.4); MONOCYTES % 6.9 % (2.0-8.0); PLATELET 183 x1000/uL (130-400); RED BLOOD CELL COUNT 3.37 mill/uL (4.2-5.4); RED CELL DISTRIBUTION WIDTH 15.9 % (11.6-14.6)
[2018-05-19] MEDS: BLOOD SUGAR DIAGNOSTIC STRIP TEST SCH ×4 (06:18→21:59)
[2018-05-19] MEDS: PANTOPRAZOLE SODIUM 40 MG/VIAL IV SCH (07:58)
[2018-05-19] MEDS: INSULIN LISPRO 100 UNITS/ML SUBCUT SCH ×4 (07:58→21:59)
[2018-05-19] MEDS: LEVETIRACETAM 500MG TABLET PO SCH ×2 (07:58→17:28)
[2018-05-19] MEDS: VANCOMYCIN 1 G PREMIX 200 ML IV SCH ×2 (07:59→20:12)
[2018-05-19] MEDS: INSULIN GLARGINE UD 100 UNITS/ML SYR SUBCUT SCH ×2 (10:45→21:59)
[2018-05-20] VITALS (9 sets, daily range): BP systolic 120–150; BP diastolic 74–88
[2018-05-20 06:24] LABS: BASOPHILS % 0.6 % (0.0-2.0); EOSINOPHILS % 2.8 % (0.0-5.0); HEMATOCRIT. 28.2 % (36.0-48.0); HEMOGLOBIN. 9.6 g/dL (12.0-16.0); LYMPHOCYTES % 21.7 % (20.0-50.0); MEAN CORPUSCULAR HEMOGLOBIN 27.6 pg (28.0-32.0); MEAN CORPUSCULAR VOLUME 81.5 fL (81.0-99.0); MEAN PLATELET VOLUME 7.4 fl (7.4-10.4); NEUTROPHILS % 68.9 % (40.0-76.0); PLATELET 182 x1000/uL (130-400); RED BLOOD CELL COUNT 3.46 mill/uL (4.2-5.4); RED CELL DISTRIBUTION WIDTH 15.8 % (11.6-14.6)
[2018-05-20] MEDS: BLOOD SUGAR DIAGNOSTIC STRIP TEST SCH ×2 (06:24→11:19)
[2018-05-20] MEDS: PIPERACILLIN/TAZ 3.375G PREMIX 50 ML IV SCH (06:24)
[2018-05-20] MEDS: INSULIN LISPRO 100 UNITS/ML SUBCUT SCH ×2 (07:54→12:11)
[2018-05-20] MEDS: VANCOMYCIN 1 G PREMIX 200 ML IV SCH (08:08)
[2018-05-20] MEDS: LEVETIRACETAM 500MG TABLET PO SCH (08:08)
[2018-05-20] MEDS: INSULIN GLARGINE UD 100 UNITS/ML SYR SUBCUT SCH (09:03)
[2018-05-20 10:04] LABS: PLATELET ESTIMATE NORMAL
[2018-05-20] MEDS ORDERED: ENOXAPARIN 40MG/0.4ML SYR SUBCUT SCH (11:00)
[2018-05-20] MEDS ORDERED: POTASSIUM CHLORIDE 20MEQ/PACKET PO ONE (11:00)
[2018-05-20] MEDS ORDERED: POTASSIUM CHLORIDE 20MEQ/PACKET PO NR (11:00)
[2018-05-20] MEDS: CLONIDINE 0.1MG TABLET PO PRN (11:38)
[2018-05-20] MEDS ORDERED: KEPP500 PO (13:21)
[2018-05-20] MEDS ORDERED: LANTUSUD SUBCUT (13:21)
[2018-05-20] MEDS ORDERED: CEPHALEXIN 500MG CAPSULE PO SCH (13:30)
[2018-05-20] MEDS ORDERED: CEFAZOLIN 1000MG PREMIX 50 ML IV SCH (14:00)
== END 2018-05-20 15:25 | disposition home or self-care (01) | DRG 710 ==
LOC: ER 08:24 → EDBEDREQ 08:45 → 6EST 09:45 → EDBEDREQ 09:55 → ENRESERV 09:59 → 6EST 13:56 → MICUSO 05-17 15:42 → 3WST 05-19 01:46
PROVIDERS: ADMIT Internal Medicine; ATTEND Internal Medicine
PROC: 02HV33Z Insertion of Infusion Device into Superior Vena Cava, Percutaneous Approach (ICD-10-PCS; 2018-05-15)
PROC: B548ZZA Ultrasonography of Superior Vena Cava, Guidance (ICD-10-PCS; 2018-05-15)
PROC: B5181ZA Fluoroscopy of Superior Vena Cava using Low Osmolar Contrast, Guidance (ICD-10-PCS; 2018-05-15)
PROC: 5A1945Z Respiratory Ventilation, 24-96 Consecutive Hours (ICD-10-PCS; 2018-05-17)
PROC: 0BH17EZ Insertion of Endotracheal Airway into Trachea, Via Natural or Artificial Opening (ICD-10-PCS; 2018-05-17)
PROC: 0JCH0ZZ Extirpation of Matter from Left Lower Arm Subcutaneous Tissue and Fascia, Open Approach (ICD-10-PCS; 2018-05-17)
PROC: 0R9M0ZZ Drainage of Left Elbow Joint, Open Approach (ICD-10-PCS; 2018-05-17)
PROC: 30233N1 Transfusion of Nonautologous Red Blood Cells into Peripheral Vein, Percutaneous Approach (ICD-10-PCS; 2018-05-17)
PROC: 30233L1 Transfusion of Nonautologous Fresh Plasma into Peripheral Vein, Percutaneous Approach (ICD-10-PCS; 2018-05-17)
PROC: 30233K1 Transfusion of Nonautologous Frozen Plasma into Peripheral Vein, Percutaneous Approach (ICD-10-PCS; 2018-05-17)
PROC: 03Q80ZZ Repair Left Brachial Artery, Open Approach (ICD-10-PCS; principal; 2018-05-17 12:00)
DX: A41.9 Sepsis, unspecified organism (principal); J96.00 Acute respiratory failure, unspecified whether with hypoxia or hypercapnia; Z99.11 Dependence on respirator [ventilator] status; E11.65 Type 2 diabetes mellitus with hyperglycemia; E87.1 Hypo-osmolality and hyponatremia; S45.192A Other specified injury of brachial artery, left side, initial encounter; S50.02XA Contusion of left elbow, initial encounter; E87.8 Other disorders of electrolyte and fluid balance, not elsewhere classified; F11.20 Opioid dependence, uncomplicated; D50.9 Iron deficiency anemia, unspecified; F17.210 Nicotine dependence, cigarettes, uncomplicated; L03.114 Cellulitis of left upper limb; L02.414 Cutaneous abscess of left upper limb; M79.5 Residual foreign body in soft tissue; B19.20 Unspecified viral hepatitis C without hepatic coma; X58.XXXA Exposure to other specified factors, initial encounter; Y93.89 Activity, other specified; Y92.89 Other specified places as the place of occurrence of the external cause; Y99.8 Other external cause status; E66.9 Obesity, unspecified; G40.909 Epilepsy, unspecified, not intractable, without status epilepticus; I10 Essential (primary) hypertension; I72.1 Aneurysm of artery of upper extremity; Z79.4 Long term (current) use of insulin; Z23 Encounter for immunization; Z68.34 Body mass index [BMI] 34.0-34.9, adult
CPT/HCPCS: 36415; 36569; 36600; 71045; 73090; 73130; 73220; 76881; 76937; 77001; 80048; 80053; 80061; 80202; 80305; 81003; 82375; 82805; 82962; 83036; 84100; 84145; 84443; 84478; 85025; 85610; 86703; 86705; 86709; 86803; 86850; 86900; 86920; 86927; 87040; 87070; 87075; 87077; 87186; 87205; 87340; 88300; 90715; 93005; 93970; 93971; 94002; 94003; 96365; 96375; 97162; 99285; A4216; C1725; C1893; C9113; J0690; J1170; J1644; J1650; J1815; J1885; J2250; J2270; J2370; J2405; J2543; J2704; J2765; J3010; J3370; J3480; J3490; J7030; J7060; J7620; P9016; P9017; Q9966; Q9967; A4315

== ENCOUNTER 2022-04-03 11:35 | Inpatient (IN) | payer OTHER ==
[~2022-04-03] VITALS: Ht 165.1 cm; Wt 84.4 kg
[~2022-04-03 11:35] MED LIST changes: -ASCO500C6 PO; +CEPH500C2 MT; +INSLIS SUBCUT; -INSU100I19; -INSU100I3; +LANTUSUD SUBCUT; +METF-416 PO; -METF500T7; -PRAV40TA58
[2022-04-03] MEDS ORDERED: SODIUM CHLORIDE 0.9% 1000ML BAG (SEPSIS BOLUS) IV ONE (12:15)
[2022-04-03] MEDS ORDERED: MORPHINE SULFATE 4 MG/ML CPJ (NOT FOR IM USE) IV STA (12:27)
[2022-04-03] MEDS ORDERED: MORPHINE SULFATE 4 MG/ML CPJ (NOT FOR IM USE) IV NR (12:27)
[2022-04-03] MEDS ORDERED: ONDANSETRON HCL 4MG/2ML INJ IV NR (12:27)
[2022-04-03] MEDS ORDERED: ONDANSETRON HCL 4MG/2ML INJ IV STA (12:27)
[2022-04-03] MEDS ORDERED: PIPERACILLIN/TAZ 3.375G PREMIX 50 ML IV ONE (12:30)
[2022-04-03] MEDS ORDERED: VANCOMYCIN 1G PREMIX 200 ML IV ONE (12:30)
[2022-04-03 12:58] LABS: HEMATOCRIT. 25.6 % (36.0-48.0); HEMOGLOBIN. 7.5 g/dL (12.0-16.0); MEAN CORPUSCULAR HEMOGLOBIN 18.6 pg (28.0-32.0); MEAN CORPUSCULAR VOLUME 63.3 fL (81.0-99.0); MEAN PLATELET VOLUME 8.8 fl (7.4-10.4); PLATELET 143 x1000/uL (130-400); RED BLOOD CELL COUNT 4.04 mill/uL (4.2-5.4); RED CELL DISTRIBUTION WIDTH 21.1 % (11.6-14.6)
[2022-04-03 13:10] LABS: CHLORIDE 93 mEq/L (98-107)
[2022-04-03 13:11] LABS: INR 1.1; PROTHROMBIN TIME 11.9 sec (9.6-11.0)
[2022-04-03 13:20] LABS: BETA HYDROXYBUTYRATE 0.2 mMol/L (0.0-0.3); ETHANOL BLOOD < 10 mg/dL
[2022-04-03] MEDS: INSULIN REGULAR (HUMULIN R) 300UNITS/3ML VIAL SUBCUT ONE ×2 (13:45→18:19)
[2022-04-03 14:13] LABS: PLATELET ESTIMATE NORMAL
[2022-04-03] MEDS ORDERED: INSULIN REGULAR (DRIP) 100 UNITS in SODIUM CHLORIDE 0.9% 100 ML IV ONE (14:30)
[2022-04-03] MEDS ORDERED: ONDANSETRON HCL 4MG/2ML INJ IV PRN (14:45)
[2022-04-03] MEDS ORDERED: IPRATROPIUM/ALBUTEROL 0.5-3(2.5)MG/3ML NEB HHN PRN (14:45)
[2022-04-03] MEDS ORDERED: INSULIN REGULAR (DRIP) 100 UNITS in SODIUM CHLORIDE 0.9% 100 ML IV PRN ×2 (14:45→15:15)
[2022-04-03] MEDS ORDERED: INSULIN REGULAR (HUMULIN R) 300UNITS/3ML VIAL SUBCUT ONE (14:45)
[2022-04-03] MEDS ORDERED: ACETAMINOPHEN 325MG TABLET PO PRN ×2 (14:45)
[2022-04-03] MEDS: SODIUM CHLORIDE 0.45% 1,000 ML IV SCH ×2 (14:45→21:04)
[2022-04-03 15:08] LABS: PHOSPHORUS 2.6 mg/dL (2.5-4.9)
[2022-04-03] MEDS ORDERED: INSULIN REGULAR 100U/100ML PMX 100 ML IV PRN (15:15)
[2022-04-03] MEDS ORDERED: NALOXONE HCL 0.4MG/ML VIAL IV PRN (15:15)
[2022-04-03] MEDS ORDERED: VANCOMYCIN 1GM PMX (XELLIA) 200 ML IV NR (15:45)
[2022-04-03] MEDS ORDERED: PIPERACILLIN/TAZ 3.375G PREMIX 50 ML IV NR (15:45)
[2022-04-03 16:03] LABS: BG BASE EXCESS -5.3 mmol/L (-2.0-2.0); BG CARBOXYHEMOGLOBIN 0.7 % (0.5-1.5); BG DEOXYHEMOGLOBIN 8.3 % (0.0-5.0); BG FRACTION INSPIRED OXYGEN 21; BG HCO3 ACT 19.9 mmol/L (22.0-26.0); BG METHEMOGLOBIN 0.3 % (0.0-1.5); BG OXYGEN SATURATION 91.6 % (92.0-98.5); BG OXYHEMOGLOBIN 90.7 % (94.0-97.0); BG PH 7.348 (7.350-7.450); BG PO2 66.6 mmHg (75.0-100.0); BG SAMPLE SITE RIGHT RADIAL; BG TOTAL HEMOGLOBIN 7.8 g/dL (12.0-18.0); BG VENT MODE ROOM AIR
[2022-04-03] MEDS ORDERED: INSULIN REGULAR (HUMULIN R) 300UNITS/3ML VIAL SUBCUT SCH (16:30)
[2022-04-03] MEDS: BLOOD SUGAR DIAGNOSTIC STRIP TEST SCH ×8 (16:31→23:00)
[2022-04-03 16:45] LABS: CLARITY URINE CLOUDY (CLEAR); COLOR URINE DARK YELLOW (YELLOW); KETONES URINE NEGATIVE (NEGATIVE); LEUKOCYTE ESTERASE URINE NEGATIVE (NEGATIVE); NITRITE URINE NEGATIVE (NEGATIVE); OCCULT BLOOD URINE NEGATIVE (NEGATIVE); PH URINE 5.5 (4.5-8.0); PROTEIN URINE 1+ (NEGATIVE); SPECIFIC GRAVITY URINE 1.023 (1.005-1.030)
[2022-04-03 17:14] LABS: *AMPHETAMINES SCREEN URINE NEGATIVE (NEGATIVE); *BARBITURATES SCREEN URINE NEGATIVE (NEGATIVE); *BENZODIAZEPINES SCREEN URINE NEGATIVE (NEGATIVE); *COCAINE SCREEN URINE NEGATIVE (NEGATIVE); CANNABINOID URINE SCREEN NEGATIVE (NEGATIVE); OPIATES URINE SCREEN PRESUMTIVE POSITIVE (NEGATIVE); PHENCYCLIDINE URINE SCREEN PRESUMTIVE POSITIVE (NEGATIVE)
[2022-04-03 17:18] LABS: METHADONE URINE SCREEN PRESUMTIVE POSITIVE (NEGATIVE)
[2022-04-03 22:15] VITALS: BP 126/62
[2022-04-03 22:30] VITALS: BP 123/59
[2022-04-03 23:00] VITALS: BP 100/54
[2022-04-03 23:30] VITALS: BP 132/62
[2022-04-04] VITALS (32 sets, daily range): BP systolic 80–158; BP diastolic 46–72
[2022-04-04] MEDS: BLOOD SUGAR DIAGNOSTIC STRIP TEST SCH ×7 (01:00→06:00)
[2022-04-04 05:04] LABS: MEAN CORPUSCULAR HEMOGLOBIN 18.9 pg (28.0-32.0); MEAN CORPUSCULAR VOLUME 60.3 fL (81.0-99.0); MEAN PLATELET VOLUME 8.9 fl (7.4-10.4); PLATELET 116 x1000/uL (130-400); RED BLOOD CELL COUNT 3.38 mill/uL (4.2-5.4); RED CELL DISTRIBUTION WIDTH 20.4 % (11.6-14.6)
[2022-04-04 05:39] LABS: HEMATOCRIT. 20.4 % (36.0-48.0); HEMOGLOBIN. 6.4 g/dL (12.0-16.0)
[2022-04-04] MEDS ORDERED: DEXTROSE 50% WATER 50ML SYRINGE IV PRN (06:45)
[2022-04-04] MEDS: SODIUM CHLORIDE 0.45% 1,000 ML IV SCH (06:49)
[2022-04-04] MEDS ORDERED: BLOOD SUGAR DIAGNOSTIC STRIP TEST SCH (07:50)
[2022-04-04] MEDS: INSULIN LISPRO 100 UNITS/ML SUBCUT SCH ×3 (08:20→20:36)
[2022-04-04] MEDS: SODIUM CHLORIDE 0.9% 1,000 ML IV SCH ×2 (08:30→18:17)
[2022-04-04 08:36] LABS: PLATELET ESTIMATE SLIGHTLY DECREASED
[2022-04-04] MEDS: INSULIN GLARGINE 100 UNITS/ML SUBCUT SCH (10:00)
[2022-04-04] MEDS ORDERED: VANCOMYCIN 500 MG in DEXT 5% WATER 100 ML IV NR (12:00)
[2022-04-04 16:47] LABS: TOTAL IRON BINDING CAPACITY 238 ug/dL (250-450)
[2022-04-04 17:12] LABS: FOLIC ACID (FOLATE) SERUM 5.2 ng/mL (>5.38)
[2022-04-04 20:23] LABS: INR 1.1; PROTHROMBIN TIME 11.3 sec (9.6-11.0)
[2022-04-05] VITALS: BP 110/62
[2022-04-05 01:15] LABS: HEMATOCRIT. 24.2 % (36.0-48.0); HEMOGLOBIN. 7.7 g/dL (12.0-16.0); MEAN CORPUSCULAR HEMOGLOBIN 19.8 pg (28.0-32.0); MEAN CORPUSCULAR VOLUME 62.5 fL (81.0-99.0); MEAN PLATELET VOLUME 8.8 fl (7.4-10.4); PLATELET 130 x1000/uL (130-400); RED BLOOD CELL COUNT 3.88 mill/uL (4.2-5.4); RED CELL DISTRIBUTION WIDTH 22.9 % (11.6-14.6)
[2022-04-05 01:30] LABS: PHOSPHORUS 2.3 mg/dL (2.5-4.9)
[2022-04-05] MEDS: SODIUM CHLORIDE 0.9% 1,000 ML IV SCH ×2 (01:32→15:28)
[2022-04-05 04:00] VITALS: BP 128/68
[2022-04-05] MEDS: INSULIN LISPRO 100 UNITS/ML SUBCUT SCH ×4 (06:17→22:10)
[2022-04-05 06:54] LABS: PLATELET ESTIMATE NORMAL
[2022-04-05 08:00] VITALS: BP 122/71
[2022-04-05] MEDS: HYDROCODONE/ACETAMINOPHEN 5/325MG TABLET PO PRN (08:22)
[2022-04-05 10:24] LABS: HEPATITIS B SURFACE ANTIGEN NEGATIVE
[2022-04-05] MEDS: CEFEPIME 2,000 MG in DEXT 5% WATER 100 ML IV SCH (10:50)
[2022-04-05] MEDS: INSULIN GLARGINE 100 UNITS/ML SUBCUT SCH ×2 (10:51→22:11)
[2022-04-05] MEDS ORDERED: VANCOMYCIN 1GM PMX (XELLIA) 200 ML IV SCH (11:00)
[2022-04-05 12:00] VITALS: BP 161/78
[2022-04-05] MEDS ORDERED: VANCOMYCIN 750MG PMX (XELLIA) 150 ML IV SCH (12:00)
[2022-04-05] MEDS ORDERED: MORPHINE SULFATE 2 MG/ML CPJ (NOT FOR IM USE) IV NR (13:00)
[2022-04-05] MEDS ORDERED: SODIUM PHOS,M-BASIC-D-BASIC 15 MM in DEXT 5% WATER 245 ML IV NR (15:00)
[2022-04-05 16:00] VITALS: BP 145/75
[2022-04-05 18:03] LABS: HEMATOCRIT 23.8 % (36.0-48.0); HEMOGLOBIN 7.6 g/dL (12.0-16.0)
[2022-04-05] MEDS: INSULIN REGULAR (HUMULIN R) 300UNITS/3ML VIAL SUBCUT SCH (18:19)
[2022-04-05 20:00] VITALS: BP 154/74
[2022-04-06] VITALS (10 sets, daily range): BP systolic 143–173; BP diastolic 70–84
[2022-04-06] MEDS: SODIUM CHLORIDE 0.9% 1,000 ML IV SCH ×3 (00:28→20:30)
[2022-04-06 00:39] LABS: BASOPHILS % 0.1 % (0.0-2.0); EOSINOPHILS % 0.4 % (0.0-5.0); LYMPHOCYTES % 9.2 % (20.0-50.0); MEAN CORPUSCULAR HEMOGLOBIN 19.7 pg (28.0-32.0); MEAN CORPUSCULAR VOLUME 61.8 fL (81.0-99.0); MEAN PLATELET VOLUME 8.5 fl (7.4-10.4); MONOCYTES % 8.1 % (2.0-8.0); NEUTROPHILS % 82.2 % (40.0-76.0); PLATELET 139 x1000/uL (130-400); RED BLOOD CELL COUNT 2.69 mill/uL (4.2-5.4); RED CELL DISTRIBUTION WIDTH 22.8 % (11.6-14.6)
[2022-04-06 00:46] LABS: HEMOGLOBIN. 5.3 g/dL (12.0-16.0)
[2022-04-06 00:47] LABS: HEMATOCRIT. 16.6 % (36.0-48.0)
[2022-04-06] MEDS: CLONIDINE 0.1MG TABLET PO PRN ×3 (04:09→18:05)
[2022-04-06 07:08] LABS: HIV SCREEN 4G Non Reactive (Non Reactive)
[2022-04-06 07:37] LABS: PLATELET ESTIMATE NORMAL
[2022-04-06] MEDS: CEFEPIME 2,000 MG in DEXT 5% WATER 100 ML IV SCH (08:39)
[2022-04-06] MEDS: HYDROCODONE/ACETAMINOPHEN 5/325MG TABLET PO PRN ×2 (08:39→21:40)
[2022-04-06] MEDS: INSULIN LISPRO 100 UNITS/ML SUBCUT SCH ×4 (08:41→21:38)
[2022-04-06] MEDS: INSULIN REGULAR (HUMULIN R) 300UNITS/3ML VIAL SUBCUT SCH ×3 (08:42→18:06)
[2022-04-06] MEDS: DOCUSATE SODIUM 100MG CAPSULE PO PRN (10:38)
[2022-04-06] MEDS: INSULIN GLARGINE 100 UNITS/ML SUBCUT SCH ×2 (10:38→21:39)
[2022-04-06] MEDS ORDERED: POTASSIUM CHLORIDE INJ 40 MEQ in DEXT 5% WATER 250 ML IV ONE (11:00)
[2022-04-06] MEDS ORDERED: MORPHINE SULFATE 2 MG/ML CPJ (NOT FOR IM USE) IV NR (11:30)
[2022-04-06] MEDS: KCL 20MEQ/100ML X 2 FOR TOTAL KCL 40MEQ/200ML IV SCH ×2 (13:50→16:42)
[2022-04-06 17:56] LABS: BASOPHILS % 0.2 % (0.0-2.0); EOSINOPHILS % 0.2 % (0.0-5.0); HEMATOCRIT. 26.4 % (36.0-48.0); HEMOGLOBIN. 8.4 g/dL (12.0-16.0); LYMPHOCYTES % 7.9 % (20.0-50.0); MEAN CORPUSCULAR HEMOGLOBIN 20.8 pg (28.0-32.0); MEAN PLATELET VOLUME 8.6 fl (7.4-10.4); MONOCYTES % 8.6 % (2.0-8.0); NEUTROPHILS % 83.1 % (40.0-76.0); PLATELET 134 x1000/uL (130-400); RED BLOOD CELL COUNT 4.06 mill/uL (4.2-5.4); RED CELL DISTRIBUTION WIDTH 28.3 % (11.6-14.6)
[2022-04-06 18:07] LABS: CHLORIDE 105 mEq/L (98-107)
[2022-04-06] MEDS: LORAZEPAM 0.5MG TABLET PO PRN (22:43)
[2022-04-07] VITALS: BP 162/81
[2022-04-07] MEDS: CLONIDINE 0.1MG TABLET PO PRN ×3 (00:34→09:44)
[2022-04-07] MEDS: HYDROCODONE/ACETAMINOPHEN 5/325MG TABLET PO PRN ×3 (01:32→23:07)
[2022-04-07] MEDS: SODIUM CHLORIDE 0.9% 1,000 ML IV SCH ×2 (03:02→18:01)
[2022-04-07 04:00] VITALS: BP 171/78
[2022-04-07] MEDS: LORAZEPAM 0.5MG TABLET PO PRN (04:06)
[2022-04-07 07:42] LABS: BASOPHILS % 0.1 % (0.0-2.0); EOSINOPHILS % 0.2 % (0.0-5.0); HEMATOCRIT. 23.3 % (36.0-48.0); HEMOGLOBIN. 7.7 g/dL (12.0-16.0); LYMPHOCYTES % 7.1 % (20.0-50.0); MEAN CORPUSCULAR VOLUME 63.8 fL (81.0-99.0); MEAN PLATELET VOLUME 8.5 fl (7.4-10.4); MONOCYTES % 6.5 % (2.0-8.0); NEUTROPHILS % 86.1 % (40.0-76.0); PLATELET 142 x1000/uL (130-400); RED BLOOD CELL COUNT 3.66 mill/uL (4.2-5.4); RED CELL DISTRIBUTION WIDTH 27.3 % (11.6-14.6)
[2022-04-07 08:00] VITALS: BP 168/78
[2022-04-07 08:40] LABS: CHLORIDE 113 mEq/L (98-107)
[2022-04-07 08:45] LABS: PHOSPHORUS 1.8 mg/dL (2.5-4.9)
[2022-04-07] MEDS: CEFEPIME 2,000 MG in DEXT 5% WATER 100 ML IV SCH (08:49)
[2022-04-07] MEDS: INSULIN LISPRO 100 UNITS/ML SUBCUT SCH ×4 (08:51→21:00)
[2022-04-07] MEDS: INSULIN REGULAR (HUMULIN R) 300UNITS/3ML VIAL SUBCUT SCH ×3 (08:52→18:02)
[2022-04-07] MEDS ORDERED: POTASSIUM CHLORIDE 20MEQ TABLET SR PO NR (09:00)
[2022-04-07] MEDS: MORPHINE SULFATE 2 MG/ML CPJ (NOT FOR IM USE) IV PRN ×3 (09:44→21:01)
[2022-04-07] MEDS: INSULIN GLARGINE 100 UNITS/ML SUBCUT SCH ×2 (09:45→22:43)
[2022-04-07] MEDS ORDERED: MAGNESIUM 2 G PREMIX 50 ML IV NR (11:00)
[2022-04-07 12:00] VITALS: BP 136/66
[2022-04-07] MEDS ORDERED: POTASSIUM PHOS,M-BASIC-D-BASIC 15 MMOL in DEXT 5% WATER 245 ML IV NR (12:00)
[2022-04-07 16:00] VITALS: BP 144/66
[2022-04-07] MEDS: POTASSIUM-SODIUM PHOSPHATE POWDER PACKET PO SCH (18:00)
[2022-04-07] MEDS: DOCUSATE SODIUM 100MG CAPSULE PO PRN (18:00)
[2022-04-07 20:00] VITALS: BP 150/72
[2022-04-08] VITALS: BP 168/75
[2022-04-08] MEDS: MORPHINE SULFATE 2 MG/ML CPJ (NOT FOR IM USE) IV PRN ×5 (01:37→21:50)
[2022-04-08] MEDS: SODIUM CHLORIDE 0.9% 1,000 ML IV SCH ×3 (02:10→21:25)
[2022-04-08] MEDS: HYDROCODONE/ACETAMINOPHEN 5/325MG TABLET PO PRN ×2 (03:26→08:23)
[2022-04-08 04:00] VITALS: BP 167/81
[2022-04-08] MEDS: CLONIDINE 0.1MG TABLET PO PRN (04:55)
[2022-04-08 07:50] LABS: HEMATOCRIT. 25.1 % (36.0-48.0); HEMOGLOBIN. 8.1 g/dL (12.0-16.0); MEAN CORPUSCULAR HEMOGLOBIN 20.5 pg (28.0-32.0); MEAN CORPUSCULAR VOLUME 63.8 fL (81.0-99.0); MEAN PLATELET VOLUME 8.5 fl (7.4-10.4); PLATELET 208 x1000/uL (130-400); RED BLOOD CELL COUNT 3.93 mill/uL (4.2-5.4)
[2022-04-08 08:00] VITALS: BP 156/73
[2022-04-08 08:24] LABS: CHLORIDE 107 mEq/L (98-107)
[2022-04-08] MEDS: INSULIN REGULAR (HUMULIN R) 300UNITS/3ML VIAL SUBCUT SCH ×3 (08:26→17:52)
[2022-04-08] MEDS: INSULIN LISPRO 100 UNITS/ML SUBCUT SCH ×4 (08:27→22:23)
[2022-04-08] MEDS: POTASSIUM-SODIUM PHOSPHATE POWDER PACKET PO SCH ×2 (08:27→17:51)
[2022-04-08] MEDS: CEFEPIME 2,000 MG in DEXT 5% WATER 100 ML IV SCH ×3 (10:17→22:08)
[2022-04-08] MEDS: INSULIN GLARGINE 100 UNITS/ML SUBCUT SCH ×2 (10:19→22:24)
[2022-04-08 12:00] VITALS: BP 137/73
[2022-04-08 16:00] VITALS: BP 132/67
[2022-04-08 16:20] LABS: PLATELET ESTIMATE NORMAL
[2022-04-08 20:00] VITALS: BP 148/69
[2022-04-09] VITALS: BP 144/69
[2022-04-09 04:00] VITALS: BP 143/61
[2022-04-09] MEDS: MORPHINE SULFATE 2 MG/ML CPJ (NOT FOR IM USE) IV PRN ×5 (04:05→21:38)
[2022-04-09] MEDS: CEFEPIME 2,000 MG in DEXT 5% WATER 100 ML IV SCH ×3 (06:14→21:35)
[2022-04-09] MEDS: INSULIN LISPRO 100 UNITS/ML SUBCUT SCH ×4 (07:03→21:06)
[2022-04-09 07:31] LABS: HEMOGLOBIN. 8.1 g/dL (12.0-16.0); MEAN CORPUSCULAR HEMOGLOBIN 20.6 pg (28.0-32.0); MEAN CORPUSCULAR VOLUME 63.9 fL (81.0-99.0); MEAN PLATELET VOLUME 8.6 fl (7.4-10.4); PLATELET 274 x1000/uL (130-400); RED BLOOD CELL COUNT 3.91 mill/uL (4.2-5.4); RED CELL DISTRIBUTION WIDTH 27.3 % (11.6-14.6)
[2022-04-09 07:51] LABS: CHLORIDE 108 mEq/L (98-107)
[2022-04-09 08:00] VITALS: BP 146/86
[2022-04-09] MEDS: INSULIN REGULAR (HUMULIN R) 300UNITS/3ML VIAL SUBCUT SCH ×3 (08:33→17:48)
[2022-04-09] MEDS: SODIUM CHLORIDE 0.9% 1,000 ML IV SCH ×2 (08:51→18:29)
[2022-04-09] MEDS: POTASSIUM-SODIUM PHOSPHATE POWDER PACKET PO SCH ×2 (09:00→17:45)
[2022-04-09] MEDS: INSULIN GLARGINE 100 UNITS/ML SUBCUT SCH ×2 (10:47→21:35)
[2022-04-09 12:00] VITALS: BP 157/70
[2022-04-09] MEDS: FOLIC ACID 1MG TABLET PO SCH (15:36)
[2022-04-09 16:00] VITALS: BP 140/68
[2022-04-09 20:00] VITALS: BP 144/68
[2022-04-09 20:35] LABS: PLATELET ESTIMATE NORMAL
[2022-04-09] MEDS: BLOOD SUGAR DIAGNOSTIC STRIP TEST SCH (21:07)
[2022-04-10] VITALS: BP 153/67
[2022-04-10] MEDS: MORPHINE SULFATE 2 MG/ML CPJ (NOT FOR IM USE) IV PRN ×5 (03:11→22:25)
[2022-04-10 04:00] VITALS: BP 140/69
[2022-04-10] MEDS: SODIUM CHLORIDE 0.9% 1,000 ML IV SCH ×2 (04:18→14:30)
[2022-04-10] MEDS: CEFEPIME 2,000 MG in DEXT 5% WATER 100 ML IV SCH ×3 (05:40→22:24)
[2022-04-10] MEDS: BLOOD SUGAR DIAGNOSTIC STRIP TEST SCH ×4 (06:59→21:00)
[2022-04-10] MEDS: INSULIN LISPRO 100 UNITS/ML SUBCUT SCH ×4 (06:59→22:16)
[2022-04-10] MEDS: INSULIN REGULAR (HUMULIN R) 300UNITS/3ML VIAL SUBCUT SCH ×3 (07:09→18:00)
[2022-04-10 08:00] VITALS: BP 153/73
[2022-04-10 08:11] LABS: BASOPHILS % 0.3 % (0.0-2.0); EOSINOPHILS % 1.4 % (0.0-5.0); HEMATOCRIT. 23.5 % (36.0-48.0); HEMOGLOBIN. 7.6 g/dL (12.0-16.0); LYMPHOCYTES % 11.6 % (20.0-50.0); MEAN CORPUSCULAR VOLUME 64.7 fL (81.0-99.0); MEAN PLATELET VOLUME 8.5 fl (7.4-10.4); MONOCYTES % 8.1 % (2.0-8.0); NEUTROPHILS % 78.6 % (40.0-76.0); PLATELET 297 x1000/uL (130-400); RED BLOOD CELL COUNT 3.63 mill/uL (4.2-5.4); RED CELL DISTRIBUTION WIDTH 26.6 % (11.6-14.6)
[2022-04-10 08:23] LABS: CHLORIDE 107 mEq/L (98-107)
[2022-04-10] MEDS: POTASSIUM-SODIUM PHOSPHATE POWDER PACKET PO SCH ×2 (09:00→17:58)
[2022-04-10] MEDS: FOLIC ACID 1MG TABLET PO SCH (09:00)
[2022-04-10] MEDS: INSULIN GLARGINE 100 UNITS/ML SUBCUT SCH ×2 (10:00→22:17)
[2022-04-10] MEDS ORDERED: FENTANYL CITRATE/PF 50MCG/ML 2ML VIAL ONE (11:19)
[2022-04-10] MEDS ORDERED: MIDAZOLAM HCL 2 MG/2 ML VIAL ONE ×2 (11:20→11:42)
[2022-04-10] MEDS ORDERED: LIDOCAINE HCL 2% JELLY 5ML ONE (11:36)
[2022-04-10] MEDS ORDERED: TETRACAINE/BENZOCAINE/BUTAMBEN 20 GM SPRAY MM ONE (11:37)
[2022-04-10 12:00] VITALS: BP 153/69
[2022-04-10 16:00] VITALS: BP 157/71
[2022-04-10] MEDS: AMLODIPINE 5MG TABLET PO SCH (18:00)
[2022-04-10 20:00] VITALS: BP 140/69
[2022-04-11] VITALS: BP 107/51
[2022-04-11] MEDS: MORPHINE SULFATE 2 MG/ML CPJ (NOT FOR IM USE) IV PRN ×2 (03:47→09:18)
[2022-04-11] MEDS: SODIUM CHLORIDE 0.9% 1,000 ML IV SCH (03:48)
[2022-04-11 04:00] VITALS: BP 127/62
[2022-04-11] MEDS: CEFEPIME 2,000 MG in DEXT 5% WATER 100 ML IV SCH ×3 (05:59→21:09)
[2022-04-11] MEDS: BLOOD SUGAR DIAGNOSTIC STRIP TEST SCH ×4 (06:42→20:27)
[2022-04-11 07:42] LABS: BASOPHILS % 0.2 % (0.0-2.0); EOSINOPHILS % 1.1 % (0.0-5.0); HEMATOCRIT. 22.6 % (36.0-48.0); HEMOGLOBIN. 7.4 g/dL (12.0-16.0); LYMPHOCYTES % 12.5 % (20.0-50.0); MEAN CORPUSCULAR HEMOGLOBIN 21.3 pg (28.0-32.0); MEAN CORPUSCULAR VOLUME 65.1 fL (81.0-99.0); MEAN PLATELET VOLUME 7.7 fl (7.4-10.4); NEUTROPHILS % 77.2 % (40.0-76.0); PLATELET 373 x1000/uL (130-400); RED BLOOD CELL COUNT 3.47 mill/uL (4.2-5.4); RED CELL DISTRIBUTION WIDTH 26.9 % (11.6-14.6)
[2022-04-11 08:00] VITALS: BP 147/72
[2022-04-11 08:06] LABS: CHLORIDE 105 mEq/L (98-107)
[2022-04-11] MEDS: INSULIN REGULAR (HUMULIN R) 300UNITS/3ML VIAL SUBCUT SCH ×3 (09:16→17:33)
[2022-04-11] MEDS: INSULIN GLARGINE 100 UNITS/ML SUBCUT SCH ×2 (09:17→21:10)
[2022-04-11] MEDS: INSULIN LISPRO 100 UNITS/ML SUBCUT SCH ×5 (09:17→21:10)
[2022-04-11] MEDS: POTASSIUM-SODIUM PHOSPHATE POWDER PACKET PO SCH ×2 (09:17→17:32)
[2022-04-11] MEDS: FOLIC ACID 1MG TABLET PO SCH (09:18)
[2022-04-11] MEDS: AMLODIPINE 5MG TABLET PO SCH (09:18)
[2022-04-11 12:00] VITALS: BP 141/76
[2022-04-11] MEDS: METHADONE HCL 10MG TABLET PO SCH (12:40)
[2022-04-11] MEDS ORDERED: NALOXONE HCL 0.4MG/ML VIAL IV PRN (14:15)
[2022-04-11 16:00] VITALS: BP_SYST 127; BP_SYST 176; BP_DIAS 60; BP_DIAS 78
[2022-04-11] MEDS: HYDROCODONE/ACETAMINOPHEN 5/325MG TABLET PO PRN (17:32)
[2022-04-11 20:00] VITALS: BP 113/61
[2022-04-12] VITALS: BP 146/72
[2022-04-12] MEDS: HYDROCODONE/ACETAMINOPHEN 5/325MG TABLET PO PRN ×3 (03:55→21:28)
[2022-04-12 04:00] VITALS: BP 145/67
[2022-04-12] MEDS: CEFEPIME 2,000 MG in DEXT 5% WATER 100 ML IV SCH ×3 (05:29→21:20)
[2022-04-12] MEDS: BLOOD SUGAR DIAGNOSTIC STRIP TEST SCH ×4 (06:57→21:00)
[2022-04-12 08:00] VITALS: BP 139/65
[2022-04-12] MEDS: FOLIC ACID 1MG TABLET PO SCH (09:26)
[2022-04-12] MEDS: AMLODIPINE 5MG TABLET PO SCH (09:26)
[2022-04-12] MEDS: INSULIN REGULAR (HUMULIN R) 300UNITS/3ML VIAL SUBCUT SCH ×3 (09:27→17:27)
[2022-04-12] MEDS: INSULIN LISPRO 100 UNITS/ML SUBCUT SCH ×4 (09:28→20:59)
[2022-04-12] MEDS: METHADONE HCL 10MG TABLET PO SCH (09:58)
[2022-04-12] MEDS: POTASSIUM-SODIUM PHOSPHATE POWDER PACKET PO SCH ×2 (10:03→17:17)
[2022-04-12 12:00] VITALS: BP 108/57
[2022-04-12] MEDS: INSULIN GLARGINE 100 UNITS/ML SUBCUT SCH ×2 (12:02→21:09)
[2022-04-12 16:00] VITALS: BP 110/60
[2022-04-12 20:00] VITALS: BP 122/55
[2022-04-13] VITALS: BP 116/60
[2022-04-13] MEDS: HYDROCODONE/ACETAMINOPHEN 5/325MG TABLET PO PRN (03:39)
[2022-04-13 04:00] VITALS: BP 118/60
[2022-04-13] MEDS: BLOOD SUGAR DIAGNOSTIC STRIP TEST SCH ×2 (06:12→12:55)
[2022-04-13] MEDS: INSULIN REGULAR (HUMULIN R) 300UNITS/3ML VIAL SUBCUT SCH ×2 (06:25→13:01)
[2022-04-13] MEDS: INSULIN LISPRO 100 UNITS/ML SUBCUT SCH ×2 (06:26→13:02)
[2022-04-13] MEDS: CEFEPIME 2,000 MG in DEXT 5% WATER 100 ML IV SCH (06:28)
[2022-04-13 08:00] VITALS: BP 121/59
[2022-04-13] MEDS: FOLIC ACID 1MG TABLET PO SCH (09:32)
[2022-04-13] MEDS: POTASSIUM-SODIUM PHOSPHATE POWDER PACKET PO SCH (09:32)
[2022-04-13] MEDS: INSULIN GLARGINE 100 UNITS/ML SUBCUT SCH (09:33)
[2022-04-13] MEDS: AMLODIPINE 5MG TABLET PO SCH (09:33)
[2022-04-13] MEDS: METHADONE HCL 10MG TABLET PO SCH (09:55)
[2022-04-13 12:00] VITALS: BP 123/69
[2022-04-13 12:30] VITALS: BP 123/69
== END 2022-04-13 13:43 | DRG 710 ==
LOC: ER 11:35 → CVICU 14:25 → EDBEDREQTM 14:31 → EDBEDREQSVC 14:31 → EDBEDREQ 14:31 → ENRESERV 18:33 → 7WST 04-04 22:14
PROVIDERS: ADMIT Internal Medicine; ATTEND Internal Medicine
PROC: 02HV33Z Insertion of Infusion Device into Superior Vena Cava, Percutaneous Approach (ICD-10-PCS; 2022-04-03)
PROC: 30233N1 Transfusion of Nonautologous Red Blood Cells into Peripheral Vein, Percutaneous Approach (ICD-10-PCS; 2022-04-04)
PROC: 0KBS0ZZ Excision of Right Lower Leg Muscle, Open Approach (ICD-10-PCS; principal; 2022-04-07)
PROC: 0JBP0ZZ Excision of Left Lower Leg Subcutaneous Tissue and Fascia, Open Approach (ICD-10-PCS; 2022-04-07)
DX: A40.9 Streptococcal sepsis, unspecified (principal); E43 Unspecified severe protein-calorie malnutrition; E11.10 Type 2 diabetes mellitus with ketoacidosis without coma; D69.6 Thrombocytopenia, unspecified; N17.9 Acute kidney failure, unspecified; L03.115 Cellulitis of right lower limb; E87.1 Hypo-osmolality and hyponatremia; L03.116 Cellulitis of left lower limb; S81.801A Unspecified open wound, right lower leg, initial encounter; D64.9 Anemia, unspecified; F16.129 Hallucinogen abuse with intoxication, unspecified; G40.909 Epilepsy, unspecified, not intractable, without status epilepticus; S81.802A Unspecified open wound, left lower leg, initial encounter; W18.39XA Other fall on same level, initial encounter; M50.10 Cervical disc disorder with radiculopathy, unspecified cervical region; B19.20 Unspecified viral hepatitis C without hepatic coma; F11.20 Opioid dependence, uncomplicated; E53.8 Deficiency of other specified B group vitamins; Z20.822 Contact with and (suspected) exposure to COVID-19; E86.0 Dehydration; M47.9 Spondylosis, unspecified; M48.02 Spinal stenosis, cervical region; Z79.2 Long term (current) use of antibiotics; Z79.4 Long term (current) use of insulin; Z79.899 Other long term (current) drug therapy; Z90.49 Acquired absence of other specified parts of digestive tract; Z82.49 Family history of ischemic heart disease and other diseases of the circulatory system; Z68.31 Body mass index [BMI] 31.0-31.9, adult; Y93.89 Activity, other specified; Y92.89 Other specified places as the place of occurrence of the external cause; Y99.8 Other external cause status; I37.8 Other nonrheumatic pulmonary valve disorders; G95.9 Disease of spinal cord, unspecified; I07.1 Rheumatic tricuspid insufficiency
CPT/HCPCS: 36415; 36573; 36600; 70551; 71045; 72141; 72192; 73030; 73060; 73521; 73700; 73721; 76770; 80048; 80053; 80061; 80202; 80305; 80320; 81003; 82010; 82270; 82375; 82550; 82607; 82746; 82805; 82962; 83036; 83540; 83550; 83605; 83735; 83930; 84100; 84145; 84443; 84484; 85014; 85018; 85025; 85049; 85384; 85651; 86140; 86705; 86709; 86803; 86850; 86900; 86920; 87070; 87077; 87186; 87340; 87389; 87426; 93005; 93306; 93312; 93970; 97162; 97166; 97530; 99291; C1725; C9803; J0692; J1815; J2250; J2270; J2405; J2543; J3010; J3370; J3475; J3480; J3490; J7030; J7050; J7060; P9016; A4315; G0480

== ENCOUNTER 2022-07-03 22:55 | Emergency (ER) | payer OTHER ==
[~2022-07-03] VITALS: Ht 167.6 cm; Wt 64.0 kg
[2022-07-04] MEDS ORDERED: DEXT 5%/0.45% NACL 1000ML 1,000 ML IV ONE (00:30)
[2022-07-04] MEDS ORDERED: MORPHINE SULFATE 2 MG/ML CPJ (NOT FOR IM USE) IV ONE (00:45)
[2022-07-04] MEDS ORDERED: MORPHINE SULFATE 10 MG/ML CPJ IM NR (02:00)
[2022-07-04 02:18] LABS: CHLORIDE 105 mEq/L (98-107)
[2022-07-04 02:50] VITALS: BP 127/85
== END 2022-07-04 03:52 | disposition left against medical advice (07) ==
LOC: ER 22:55
DX: E11.649 Type 2 diabetes mellitus with hypoglycemia without coma (principal); Z53.29 Procedure and treatment not carried out because of patient's decision for other reasons; Z87.19 Personal history of other diseases of the digestive system; Z90.49 Acquired absence of other specified parts of digestive tract
CPT/HCPCS: 36415; 80053; 82962; 83605; 87040; 96372; 99283; J2270

== ENCOUNTER 2022-07-13 10:33 | Emergency (ER) | payer OTHER ==
[~2022-07-13] VITALS: Ht 167.6 cm; Wt 79.0 kg
[2022-07-13] MEDS ORDERED: PIPERACILLIN/TAZ 3.375G PREMIX 50 ML IV ONE (11:45)
[2022-07-13] MEDS ORDERED: VANCOMYCIN 1G PREMIX 200 ML IV ONE (11:45)
[2022-07-13] MEDS ORDERED: MORPHINE SULFATE 4 MG/ML CPJ (NOT FOR IM USE) IV ONE (13:15)
[2022-07-13 15:43] LABS: CHLORIDE 107 mEq/L (98-107)
[2022-07-13 15:44] LABS: PROTHROMBIN TIME 10.9 sec (9.6-11.0)
[2022-07-13] MEDS ORDERED: PIPERACILLIN/TAZ 3.375G PREMIX 50 ML IV NR (16:00)
[2022-07-13 16:16] LABS: BASOPHILS % 0.1 % (0.0-2.0); EOSINOPHILS % 2.1 % (0.0-5.0); HEMATOCRIT. 25.7 % (36.0-48.0); HEMOGLOBIN. 8.1 g/dL (12.0-16.0); LYMPHOCYTES % 53.5 % (20.0-50.0); MEAN CORPUSCULAR HEMOGLOBIN 25.4 pg (28.0-32.0); MEAN CORPUSCULAR VOLUME 80.5 fL (81.0-99.0); MEAN PLATELET VOLUME 7.2 fl (7.4-10.4); MONOCYTES % 8.8 % (2.0-8.0); NEUTROPHILS % 35.5 % (40.0-76.0); PLATELET 355 x1000/uL (130-400); RED CELL DISTRIBUTION WIDTH 17.4 % (11.6-14.6)
[2022-07-13 16:25] LABS: CLARITY URINE CLEAR (CLEAR); COLOR URINE YELLOW (YELLOW); KETONES URINE TRACE (NEGATIVE); LEUKOCYTE ESTERASE URINE 1+ (NEGATIVE); NITRITE URINE NEGATIVE (NEGATIVE); OCCULT BLOOD URINE NEGATIVE (NEGATIVE); PH URINE 5.5 (4.5-8.0); PROTEIN URINE NEGATIVE (NEGATIVE); SPECIFIC GRAVITY URINE 1.025 (1.005-1.030); UROBILINOGEN URINE 0.2 E.U./dL (0.2-1.0)
[2022-07-13] MEDS ORDERED: DEXTROSE 50% WATER 50ML SYRINGE IV ONE (16:30)
[2022-07-13] MEDS ORDERED: CALCIUM CHLORIDE 1GM/10ML SYR IV ONE (16:30)
[2022-07-13 17:18] VITALS: BP 105/62
== END 2022-07-13 17:28 | disposition short-term general hospital (02) ==
LOC: ER 10:33
DX: M00.9 Pyogenic arthritis, unspecified (principal); E11.649 Type 2 diabetes mellitus with hypoglycemia without coma; G40.909 Epilepsy, unspecified, not intractable, without status epilepticus; Z87.828 Personal history of other (healed) physical injury and trauma; Z90.49 Acquired absence of other specified parts of digestive tract; Z86.718 Personal history of other venous thrombosis and embolism; Z79.01 Long term (current) use of anticoagulants; Z79.4 Long term (current) use of insulin
CPT/HCPCS: 36415; 80053; 81003; 82962; 83605; 84145; 85025; 85610; 85651; 86140; 87040; 87086; 93005; 96365; 96366; 96367; 96375; 99285; J2270; J2543; J3370; J3490; Z7610

== ENCOUNTER 2023-03-01 09:03 | Emergency (ER) | payer OTHER ==
[~2023-03-01] VITALS: Ht 167.6 cm; Wt 116.0 kg
[~2023-03-01 09:03] MED LIST changes: -CEPH500C2 MT
[2023-03-01] MEDS ORDERED: ONDANSETRON HCL 4MG/2ML INJ IV STA (09:19)
[2023-03-01] MEDS ORDERED: MORPHINE SULFATE 4 MG/ML CPJ (NOT FOR IM USE) IV STA (09:19)
[2023-03-01 10:47] LABS: HEMATOCRIT. 31.4 % (36.0-48.0); HEMOGLOBIN. 10.5 g/dL (12.0-16.0); MEAN CORPUSCULAR HEMOGLOBIN 26.3 pg (28.0-32.0); MEAN CORPUSCULAR VOLUME 78.2 fL (81.0-99.0); MEAN PLATELET VOLUME 8.3 fl (7.4-10.4); PLATELET 253 x1000/uL (130-400); RED BLOOD CELL COUNT 4.01 mill/uL (4.2-5.4); RED CELL DISTRIBUTION WIDTH 16.8 % (11.6-14.6)
[2023-03-01] MEDS ORDERED: ONDANSETRON HCL 4MG/2ML INJ IV NR (10:56)
[2023-03-01] MEDS ORDERED: MORPHINE SULFATE 4 MG/ML CPJ (NOT FOR IM USE) IV NR (10:56)
[2023-03-01] MEDS ORDERED: CEFTRIAXONE 1GM PREMIX 50 ML IV NR (11:15)
[2023-03-01] MEDS ORDERED: SODIUM CHLORIDE 0.9% 1000ML BAG (SEPSIS BOLUS) IV NR (11:15)
[2023-03-01 11:32] LABS: CHLORIDE 100 mEq/L (98-107)
[2023-03-01] MEDS ORDERED: INSULIN REGULAR (HUMULIN R) 300UNITS/3ML VIAL SUBCUT NR (12:00)
[2023-03-01 12:04] LABS: INR 1.2; PROTHROMBIN TIME 13.1 sec (9.6-11.0)
[2023-03-01 13:39] LABS: NUCLEATED RED BLOOD CELLS 1 /100 WBC; PLATELET ESTIMATE NORMAL
[2023-03-01] MEDS ORDERED: LIDOCAINE HCL 1% 30ML VIAL (10MG/ML) ONE (13:49)
[2023-03-01 14:15] VITALS: BP 133/74
== END 2023-03-01 15:15 | disposition short-term general hospital (02) ==
LOC: ER 09:03 → CANBEDREQ 13:36 → ER 15:15
DX: E11.65 Type 2 diabetes mellitus with hyperglycemia (principal); D72.829 Elevated white blood cell count, unspecified; N17.9 Acute kidney failure, unspecified; E87.8 Other disorders of electrolyte and fluid balance, not elsewhere classified; D50.9 Iron deficiency anemia, unspecified; M25.551 Pain in right hip; Z20.822 Contact with and (suspected) exposure to COVID-19; Z79.4 Long term (current) use of insulin; Z90.89 Acquired absence of other organs; Z79.84 Long term (current) use of oral hypoglycemic drugs
CPT/HCPCS: 36415; 36573; 71045; 73502; 76881; 80053; 82962; 83605; 84145; 85025; 85610; 87040; 87077; 87186; 87426; 93005; 96365; 96372; 96375; 99291; C1725; C1893; C9803; J0696; J1815; J2270; J2405; J3490; Z7610

== ENCOUNTER 2023-09-17 12:12 | Emergency (ER) | payer OTHER ==
[~2023-09-17] VITALS: Ht 170.2 cm; Wt 91.0 kg
[2023-09-17 12:16] VITALS: BP 129/65; PULSE 78; RESP 16; TEMP 98.8; O2SAT 98
[2023-09-17 14:19] LABS: BASOPHILS % 0.3 % (0.0-2.0); EOSINOPHILS % 1.6 % (0.0-5.0); HEMATOCRIT. 31.2 % (36.0-48.0); HEMOGLOBIN. 10.3 g/dL (12.0-16.0); LYMPHOCYTES % 21.3 % (20.0-50.0); MEAN CORPUSCULAR HEMOGLOBIN 28.6 pg (28.0-32.0); MEAN CORPUSCULAR HGB CONC 33.1 g/dL (31.0-37.0); MEAN CORPUSCULAR VOLUME 86.3 fL (81.0-99.0); MEAN PLATELET VOLUME 7.6 fl (7.4-10.4); MONOCYTES % 4.9 % (2.0-8.0); NEUTROPHILS % 71.9 % (40.0-76.0); PLATELET 174 x1000/uL (130-400); RED BLOOD CELL COUNT 3.61 mill/uL (4.2-5.4); RED CELL DISTRIBUTION WIDTH 13.4 % (11.6-14.6); WHITE BLOOD COUNT 8.8 x1000/uL (4.5-11.0)
[2023-09-17 14:30] LABS: CHLORIDE 108 mEq/L (98-107); INDEX HEMOLYSI 1 (1-3); INDEX ICTERIC 1 (1-4); INDEX LIPEMIC 1 (1-3); POTASSIUM 4.8 mEq/L (3.5-5.1); SODIUM 136 mEq/L (136-145)
[2023-09-17 14:43] LABS: ALANINE AMINOTRANSFERASE 20 IU/L (13-61); ALBUMIN 3.3 g/dL (3.4-5.0); ASPARTATE AMINOTRANSFERASE 16 IU/L (15-37); BILIRUBIN TOTAL 0.3 mg/dL (0.1-1.0); CARBON DIOXIDE 22 mEq/L (21-32); CREATININE 1.2 mg/dL (0.6-1.3); GLUCOSE 222 mg/dL (70-105); PROTEIN TOTAL 8.4 g/dL (6.0-8.3); UREA NITROGEN BLOOD 36 mg/dL (7-21)
[2023-09-17] MEDS ORDERED: CEPH250C2 MT (15:01)
== END 2023-09-17 18:41 | disposition home or self-care (01) ==
LOC: ER 12:12
DX: L03.115 Cellulitis of right lower limb (principal); F41.9 Anxiety disorder, unspecified; E11.9 Type 2 diabetes mellitus without complications; I10 Essential (primary) hypertension; Z86.73 Personal history of transient ischemic attack (TIA), and cerebral infarction without residual deficits; Z90.49 Acquired absence of other specified parts of digestive tract; Z98.890 Other specified postprocedural states
CPT/HCPCS: 36415; 73502; 73590; 80053; 85025; 99284

== ENCOUNTER 2023-10-02 13:40 | Emergency (ER) | payer OTHER ==
[~2023-10-02] VITALS: Ht 165.1 cm; Wt 91.0 kg
[~2023-10-02 13:40] MED LIST changes: +CEPH250C2 MT
[2023-10-02 13:41] VITALS: BP 123/69; PULSE 71; RESP 18; TEMP 98.5; O2SAT 97
[2023-10-02] MEDS ORDERED: KETOROLAC 30MG/ML VIAL IM ONE ×2 (13:45→18:00)
[2023-10-02] MEDS ORDERED: HYDROCODONE/ACETAMINOPHEN 5/325MG TABLET PO ONE (14:45)
[2023-10-02] MEDS ORDERED: TRAM50TA3 MT (16:58)
[2023-10-02] MEDS ORDERED: NAPR-681 MT (16:58)
== END 2023-10-02 19:24 | disposition home or self-care (01) ==
LOC: ER 13:40
DX: G89.29 Other chronic pain (principal); M25.551 Pain in right hip; F41.9 Anxiety disorder, unspecified; E11.9 Type 2 diabetes mellitus without complications; I10 Essential (primary) hypertension; Z86.73 Personal history of transient ischemic attack (TIA), and cerebral infarction without residual deficits; Z90.49 Acquired absence of other specified parts of digestive tract; Z98.890 Other specified postprocedural states
CPT/HCPCS: 99283; J1885; Z7610

== ENCOUNTER 2024-04-16 20:57 | Emergency (ER) | payer OTHER ==
[~2024-04-16] VITALS: Ht 167.6 cm; Wt 88.0 kg
[~2024-04-16 20:57] MED LIST changes: +NAPR-681 MT; +SULF1TAB48 MT; +TRAM50TA3 MT
[2024-04-16 21:17] VITALS: O2SAT 99
[2024-04-17 00:44] LABS: BASOPHILS % 0.2 % (0.0-2.0); EOSINOPHILS % 1.3 % (0.0-5.0); HEMATOCRIT. 34.5 % (36.0-48.0); HEMOGLOBIN. 11.8 g/dL (12.0-16.0); LYMPHOCYTES % 29.9 % (20.0-50.0); MEAN CORPUSCULAR HEMOGLOBIN 28.3 pg (28.0-32.0); MEAN CORPUSCULAR HGB CONC 34.1 g/dL (31.0-37.0); MEAN CORPUSCULAR VOLUME 82.9 fL (81.0-99.0); MEAN PLATELET VOLUME 7.8 fl (7.4-10.4); MONOCYTES % 3.6 % (2.0-8.0); PLATELET 237 x1000/uL (130-400); RED BLOOD CELL COUNT 4.16 mill/uL (4.2-5.4); RED CELL DISTRIBUTION WIDTH 15.2 % (11.6-14.6); WHITE BLOOD COUNT 6.6 x1000/uL (4.5-11.0)
[2024-04-17] MEDS ORDERED: SULFAMETHOXAZOLE/TRIMETHOPRIM 800/160MG TABLET PO NR (00:45)
[2024-04-17] MEDS ORDERED: SULF1TAB48 MT (00:54)
[2024-04-17 01:59] LABS: POTASSIUM 4.8 mEq/L (3.5-5.1)
[2024-04-17 02:00] LABS: CALCIUM 9.9 mg/dL (8.7-10.4)
[2024-04-17 02:05] LABS: CREATININE 1.4 mg/dL (0.6-1.0)
[2024-04-17] MEDS: SODIUM CHLORIDE 0.9% 1,000 ML IV ONE (09:30)
[2024-04-17] MEDS: VANCOMYCIN 1.5GM/250ML IV SCH ×2 (10:00→16:00)
[2024-04-17] MEDS: SULFAMETHOXAZOLE/TRIMETHOPRIM 800/160MG TABLET PO NR (10:48)
[2024-04-17 14:00] VITALS: BP 152/79; PULSE 90; RESP 18; TEMP 98.7
== END 2024-04-17 18:16 | disposition left against medical advice (07) ==
LOC: ER 20:57 → MERGE 20:57 → ER 23:59 → 5WST 04-17 09:23 → UNDOADMIN 04-17 09:23 → EDBEDREQTM 04-17 09:28 → EDBEDREQ 04-17 09:28 → ER 04-17 18:16 → UNDODISIN 04-17 18:17
DX: L03.116 Cellulitis of left lower limb (principal); F17.200 Nicotine dependence, unspecified, uncomplicated; E11.9 Type 2 diabetes mellitus without complications; F11.90 Opioid use, unspecified, uncomplicated; Z00.00 Encounter for general adult medical examination without abnormal findings; Z86.59 Personal history of other mental and behavioral disorders
CPT/HCPCS: 99283; 80048; 85025; 36415; J3370; J7030; 99285